=== PATIENT | male | born 1940 | race Caucasian/White ===

== ENCOUNTER 2025-01-24 08:27 | Inpatient (IN) | payer OTHER, SELFPAY ==
[2025-01-24] VITALS (16 sets, daily range): BP systolic 79–137; BP diastolic 45–81; BMI 26.0
[2025-01-24 06:08] LABS: Hematocrit 34.9 % (39.0-52.0); Hemoglobin 11.8 g/dL (13.0-18.0); Mean Corp Hgb Conc. 33.8 g/dL (33.0-37.0); Mean Corpuscular Hgb 29.4 pg (27.0-31.0); Mean Platelet Volume 10.9 fL (7.4-10.4); Platelet Count 164 10^3/uL (130-400); Red Blood Cell Count 4.01 10^6/uL (4.70-6.10); Red Cell Dist. Width 14.8 % (11.5-14.5); White Blood Cell Count 22.3 10^3/uL (4.8-10.8)
[2025-01-24 06:10] LABS: COVID-19 Antigen Negative (Negative)
[2025-01-24 06:12] LABS: ALT (SGPT) 88 U/L (0-50); AST (SGOT) 39 U/L (17-59); Albumin 3.8 g/dl (3.5-5.0); Alkaline Phosphatase 120 U/L (38-126); Blood Urea Nitrogen 21 mg/dl (9-20); Calcium 8.8 mg/dl (8.4-10.2); Carbon Dioxide 28 mmol/L (22-30); Chloride 102 mmol/L (98-107); Estimated Creatinine Clearance 40 ml/min; Glucose 135 mg/dl (70-99); Potassium 4.7 mmol/L (3.5-5.1); Sodium 140 mmol/L (135-145); Total Bilirubin 1.9 mg/dl (0.2-1.3); Total Protein 7.3 g/dl (6.3-8.2); eGFR 42.49
[2025-01-24 06:29] LABS: Troponin I 0.046 ng/ml
--- NOTE | 2025-01-24 06:48 | ED.GENMED ---
History of Present Illness
General
Chief Complaint: Fever
Source: patient
Time Seen by Provider: 01/24/25 06:48
History of Present Illness
History of Present Illness:
84-year-old male presents the emergency room complaining of fever, chills, weakness and cough. Patient began having the symptoms 4 to 5 days ago. Cough has become quite productive. Patient was treated over the winter for both RSV, influenza and
pneumonia. However he seemed to improve mid September and has been well until now. states he does occasionally gag or choke when consuming food and liquid. Patient also had a GI workup for anemia which included upper endoscopy colonoscopy and
a capsule study. All of his care has been obtained in [place]. They have just recently have come to this area.
Phy Exam
Physical Exam
Physical Exam:
General: Awake, Alert, Oriented X3. Mild increased work of breathing
Vitals: Febrile on arrival, hypoxic on arrival
Head: Atraumatic
Eyes: Pupils equal, EOMI
Throat: Airway intact, no exudates
Neck: Trachea midline
Lungs: Rhonchi and crackles particularly left lower half of the lung moss
Heart: Regular rate, no murmurs
Abd: Soft, Nontender, No pulsatile mass
Neuro: Nonfocal
Skin: Warm, dry, no rash
Extremities: pulses equal b/l, no edema
Sepsis
Sepsis Screening
Sepsis Assessment: Sepsis
Sepsis Screen
Sepsis Screen: Sepsis
Date: 01/24/25
Time: 15:33
Course
Orders/Labs/Results
Orders:
Orders
01/24/25 05:24
Electrocardiogram (*1) Urgent
Reason for Study: Fatigue / Weakness
Chest [CR Chest - 2 Views ] Urgent
Comment:
Reason For Exam: fever, weakness, productive cough
01/24/25 05:25
EKG- Treatment ONCE
01/24/25 05:41
COVID-19 Antigen Urgent
Source: Nasal Swab
Complete Blood Count/With Diff Urgent
Comprehensive Metabolic Panel Urgent
Manual Differential Urgent
Troponin I Urgent
Influenza A+B Rapid Molecular Urgent
RUMA Source: Nasal Swab
Specimen Description:
RSV [Respiratory Syncytial Virus] Urgent
RUMA Source: Nasal Swab
Specimen Description:
Date Specimen was Collected: 01/24/25
Time Specimen was Collected: 05:39
01/24/25 07:14
Lactic Acid Q4H
Comment: CANCEL 2nd LACTIC ACID IF 1st LACTIC ACID IS LESS THAN 2
Blood Culture Q30M
RUMA Source: Blood/Venous
Specimen Description:
01/24/25 07:21
Respiratory Culture/Gram Stain Urgent
RUMA Source: Sputum
Specimen Description:
Date Specimen was Collected: 01/24/25
Time Specimen was Collected: 07:16
01/24/25 08:05
Azithromycin 500 mg/250 ml [Zithromax Infusion] 500 mg in 250 ml IV NOW
CefTRIAXone [Rocephin] 1,000 mg IV NOW STA
Ipratropium/Albuterol Sulfate [Duoneb] 3 ml INH R NOW STA
01/24/25 08:06
Sterile Water [Sterile Water For Injection] 10 ml IV NOW STA
01/24/25 08:07
Admit/Transfer Patient As Directed
Co-Sign Provider:
Level of Care: Inpatient admission
Assign to:: Telemetry
Physician / Group: Hospitalist: Naomi
Diagnosis: Sepsis due to pna
Reason for Telemetry: Other
Other Reason for Telemetry: sepsis
Date to Stop Telemetry: 01/26/25
Time to Stop Telemetry: 11:00
Reason for Hospitalization: Sepsis due to pna
Expected length of stay greater than two midnights?: Yes
ELOS- Estimated Length of Stay in days: 2
I certify the patient meets the requirements for IP care: Yes
PRN Pain Medication Management As Directed
May give lesser potent ordered pain med per pt: Yes
preference::
Protocol:: Medication orders for pain may be administered in a
manner that supports deferring to patient preference
when the pt is:
- Requesting an ordered lesser potent pain medication.
Least to most potent pain medications are defined
as: acetaminophen < NSAID < tramadol < opioids
(morphine, oxycodone, hydromorphone).
- Requesting a lesser dose of the same medication IF
ORDERED.
- Requesting a less intrusive route of administration
if both routes are prescribed by the provider (PO <
IV).
01/24/25 08:13
Blood Culture Q30M
RUMA Source: Blood/Venous
Specimen Description:
Legionella Urinary Antigen Urgent
RUMA Source: Urine
Specimen Description:
01/24/25 08:15
0.9% Sodium Chloride 1000 ml [Nss] 1,000 ml IV BOLUS
01/24/25 08:19
Ipratropium/Albuterol Sulfate [Duoneb] 3 ml INH R Q4HPRN PRN
01/24/25 08:30
0.9% Sodium Chloride 1000 ml [Nss] 1,000 ml IV 100 mls/hr
01/24/25 11:27
Lactic Acid Q4H
Comment: CANCEL 2nd LACTIC ACID IF 1st LACTIC ACID IS LESS THAN 2
01/24/25 13:13
Meclizine [Antivert] 25 mg PO TID PRN
Tramadol HCl [Ultram] 50 mg PO TID PRN
01/24/25 13:13
DX Deep Vein Thrombosis Video Routine
01/24/25 16:00
Heparin 5,000 units SC Q8
01/24/25 18:00
Latanoprost [Xalatan Ophthalmic Solution] See Dose Instructions OPHTH QPM
01/24/25 20:00
Carvedilol [Coreg] 3.125 mg PO BID
Sucralfate [Carafate] 1 gram PO BID
01/24/25 22:00
Atorvastatin [Lipitor] 80 mg PO HS
Tamsulosin [Flomax] 0.4 mg PO HS
01/25/25 08:00
CefTRIAXone [Rocephin] 1,000 mg IV Q24H
Pantoprazole [Protonix] 40 mg PO DAILY
01/26/25 11:00
DC Protocol for Telemetry ONCE
Abnormal Lab Results
01/24/25 01/24/25
05:41 07:14
WBC 22.3 H 10^3/uL
(4.8-10.8)
RBC 4.01 L 10^6/uL
(4.70-6.10)
Hgb 11.8 L g/dL
(13.0-18.0)
Hct 34.9 L %
(39.0-52.0)
RDW 14.8 H %
(11.5-14.5)
MPV 10.9 H fL
(7.4-10.4)
Abs Neuts (Manual) 15.3 H 10^3/uL
(1.4-6.5)
Lymphocytes (Manual) 4 L %
(20-51)
Monocytes (Manual) 24 H %
(2-9)
BUN 21 H mg/dl
(9-20)
Creatinine 1.6 H mg/dL
(0.7-1.3)
Glucose 135 H mg/dl
(70-99)
Lactic Acid 2.3 H mmol/L
(0.7-2.0)
Total Bilirubin 1.9 H mg/dl
(0.2-1.3)
ALT 88 H U/L
(0-50)
Troponin I 0.046 H* ng/ml
01/24/25 05:41
01/24/25 05:41
Vital Signs
Initial and Last Documented VS:
Initial Vital Signs
Pulse Ox
81
01/24/25 05:20
Last Documented Vital Signs
Temp Pulse Resp BP Pulse Ox
99.6 F 71 18 117/60 98
01/24/25 15:19 01/24/25 15:19 01/24/25 15:19 01/24/25 15:19 01/24/25 15:19
MDM/Problems Addressed
Differential Diagnosis Includes:
Bacterial pneumonia, influenza, COVID, other viral illness, heart failure
MDM/Problems Addressed:
Patient presents with fever, cough, hypoxia. Presentation very consistent with a respiratory infection. He is hypoxic on room air requiring nasal cannula oxygen. He has a markedly elevated white blood cell count at 22,000, platelet count is
normal. Creatinine mildly elevated 1.6 that we do not have an old measurement to compare this to. Bilirubin mildly evaded at 1.9. Troponin mildly elevated 0.046. I suspect this is a nonischemic elevation related to his current infection. Chest
x-ray shows a large left lower lobe infiltrate as well as a right middle lobe infiltrate though again we do not have any old x-rays to compare to so perhaps the right sided findings could be scarring. Patient will require hospitalization given his
hypoxia, age, suspected multi lobar involvement
Chronic conditions affecting care: HTN and Other (High cholesterol)
*Radiology
Radiology exam reviewed: preliminary read by ED provider (Left lower lobe infiltrate, right middle lobe infiltrate)
*Pulse Oximetry
Patient hypoxic: yes
*EKG
Interpreted by ED Provider?: Yes
Heart Rate: 82
Rate: normal
Rhythm: sinus
Monette: normal axis
Interval: normal interval
QRS Pattern: normal QRS
Ischemia: non-specific ST changes
*Barrel Driller Interpretation
Rate: normal
Interpretation: normal
Heart Rate: 82
Rhythm: sinus
*Critical Care Note
Total Time (30-74mins, 75-104mins- exclusive of procedures): Not Applicable
ED Attending Note
-
Portions of this chart may have been created with voice recognition software.� Occasional wrong word or��sound alike� substitutions may have occurred due to the inherent limitations of voice recognition software.
Discharge Plan
Departure
Patient Disposition: Admit
Date of Disposition: 01/24/25
Time of Disposition: 07:33
Presentation/result/management discussed w/ accepting MD/DO: Hospitalist
Condition: Fair
Discharge Problem:
Pneumonia, Hypoxia, Sepsis
Interventions
Interventions:
*Risk Screen - Suicide Last Done: 01/24/25 05:27
*General Assessment Last Done: 01/24/25 05:27
*Neglect/Abuse Screening Last Done: 01/24/25 05:27
*ED- Fall Risk Assessment Last Done: 01/24/25 05:27
*ED COVID-19 Vaccine History Last Done: 01/24/25 14:13
*Nursing Disposition Last Done: 01/24/25 13:16
ED- Neurological Assessment Last Done: 01/24/25 05:20
ED-Skin Assessment Last Done: 01/24/25 05:20
Discharge Date and Time
Discharge Date/Time: 01/24/25 13:16
[2025-01-24 07:44] LABS: Lymphocytes 4 % (20-51); Monocytes 24 % (2-9); Nucleated Red Blood Cells % 0 % (-)
[2025-01-24 07:45] LABS: Absolute Neutrophils -Man Diff 15.3 10^3/uL (1.4-6.5); Band Neutrophils 3 % (0-3); Metamyelocytes 2 % (-); Myelocytes 1 % (-); Segmented Neutrophils 66 % (42-75)
[2025-01-24 07:46] LABS: Normal RBC Morphology Yes; Platelets Checked Yes; Total Cells Counted 100
[2025-01-24 08:05] LABS: Lactic Acid 2.3 mmol/L (0.7-2.0)
[2025-01-24] MEDS: DUONEB 3 ML INH (08:18)
[2025-01-24] MEDS: ZITHROMAX INFUSION 250 IV (08:19)
[2025-01-24] MEDS: ROCEPHIN 1000 MG IV (08:19)
[2025-01-24] MEDS: STERILE WATER FOR INJECTION 10 ML IV (08:19)
[2025-01-24] MEDS: NSS 1000 IV ×2 (08:20→09:14)
--- NOTE | 2025-01-24 09:02 | HPS.HSE ---
Family Physician
-
Family Physician: NOT KNOW UNKNOWN - PT DOES
Chief Complaint
-
Fever, chills, cough
History of Present Illness
Mr. Shell is an 84-year-old male with a medical history of CAD (status post stent, reportedly not on antiplatelets due to anemia), CKD stage IIIa, scoliosis (status post multiple lumbar surgeries), hiatal hernia, and enlarged prostate who presented
with fever, chills, weakness, and cough. His symptoms have been ongoing for approximately 5 days prior to arrival. He had been treated this previous winter for pneumonia due to RSV and influenza. He does report occasional cough with food and
drink. He lives in [place] with his where all of his previous care has been managed. He has been evaluated by GI and underwent upper and lower endoscopy which were reportedly remarkable only for a hiatal hernia. He denies any significant
smoking or drinking history.
In the ED, he was borderline hypotensive with an SBP around 100. He was afebrile but tachypneic and hypoxic to the low 80s on room air. His pulse ox improved to the mid 90s on 3 L via nasal cannula. Labs were remarkable for a significant
leukocytosis of 22,000, hemoglobin of 11.8/MCV 87, creatinine 1.6, lactic acid 2.3, T. bili 1.9 with an ALT of 88, and a troponin of 0.046. Respiratory panel negative for RSV, influenza, or COVID. Chest x-ray shows large left lower lobe and right
middle lobe infiltrate. He was bolused a liter of resuscitative fluids, cultures were obtained, and he was started on antibiotics for community-acquired pneumonia. Sputum culture was also obtained. He was given less than 30 cc/kg resuscitative
fluids per sepsis protocol presumably due to unknown heart failure status especially considering his home medications include torsemide. He has been admitted for further evaluation and management of sepsis secondary to community-acquired pneumonia.
Medical History
Past Medical History
Past Medical History: Reports CAD (Prior PCI) and Renal Failure (CKD)
Additional Past Medical History:
Enlarged prostate, hiatal hernia, normocytic anemia
Past Surgical History: Reports Other (Hernia repair, lumbar spinal surgery)
Social History
Tobacco: Former Smoker (Remote history, quit over 46 years ago, smoked occasionally for approximately 10 years)
Alcohol: None
Drug: None
Personal:
Living: With Family
Family History
Family History: Not pertinent
Allergies / Home Medications
Allergies reflects when Allergies were last updated in [facility].
Home Medications with original date entered in [facility]
Allergy/Medication List:
Allergies
Allergy/AdvReac Type Severity Reaction Status Date / Time
ondansetron [From Zofran] Allergy Unknown Vomiting Verified 01/24/25 07:50
hydromorphone [From Dilaudid] AdvReac Unknown Pharmacy Verified 01/24/25 07:50
to Review
morphine AdvReac Unknown Pharmacy Verified 01/24/25 07:50
to Review
Home Medications
acetaminophen 325 mg tablet (Tylenol) 325 mg PO Q8H 01/24/25
alfuzosin 10 mg tablet,extended release 24 hr 10 mg PO DAILY 01/24/25
atorvastatin 80 mg tablet 80 mg PO HS 01/24/25
carvedilol 3.125 mg tablet 3.125 mg PO BID 01/24/25
ferrous sulfate 325 mg (65 mg iron) tablet 325 mg PO .3 X PER WEEK 01/24/25
latanoprost 0.005 % eye drops 1 drp ophthalmic (eye) QPM 01/24/25
meclizine 25 mg tablet 25 mg PO TID PRN vertigo 01/24/25
pantoprazole 40 mg tablet,delayed release 40 mg PO DAILY 01/24/25
sucralfate 1 gram tablet 1 g PO BID 01/24/25
torsemide 10 mg tablet 10 mg PO DAILY 01/24/25
tramadol 50 mg tablet 50 mg PO TID PRN back pain 01/24/25
Review of Systems
-
History Source: Patient
A 12 point ROS was completed and negative except as noted: Yes
Constitutional: Reports Fatigue and Chills
Respiratory: Reports Cough
Physical Exam
Vital Signs
Vital Signs
Temp Pulse Resp BP Pulse Ox
99.2 F 72 22 100/61 94
01/24/25 08:00 01/24/25 08:35 01/24/25 08:35 01/24/25 08:35 01/24/25 08:35
Physical Exam
General: No Apparent Distress
Laboratory Results
-
01/24/25 05:41
01/24/25 05:41
Laboratory Results
Lactic Acid 2.3 mmol/L (0.7-2.0) H 01/24/25 07:14
Total Bilirubin 1.9 mg/dl (0.2-1.3) H 01/24/25 05:41
AST 39 U/L (17-59) 01/24/25 05:41
ALT 88 U/L (0-50) H 01/24/25 05:41
Alkaline Phosphatase 120 U/L (38-126) 01/24/25 05:41
Troponin I 0.046 ng/ml H* 01/24/25 05:41
Impression/Plan
-
General: No Apparent Distress, Comfortable and Conversant
HEENT: NormoCephalic, Moist mucous membranes, nasal cannula and nebulizer mask in place
Respiratory: Scattered rhonchi and expiratory wheezing, Non Labored Respirations
Cardiac: S1/S2 and Regular Rhythm; No Rub or Gallop
GI: Soft, Non Tender, Non Distended and Normal Bowel Sounds
Musculoskeletal: No Edema, no deformity
Skin: Warm and dry
: NO Oliver
Neuro: Awake, Alert, Nonfocal/grossly intact
Psych: Calm and Intact Judgment/Insight
Mr. Shell is an 84-year-old male with a medical history of CAD (status post stent, reportedly not on antiplatelets due to anemia), CKD stage IIIa, scoliosis (status post multiple lumbar surgeries), hiatal hernia, and enlarged prostate who presented
with fever, chills, weakness, and cough. His symptoms have been ongoing for approximately 5 days prior to arrival. He had been treated this previous winter for pneumonia due to RSV and influenza. He does report occasional cough with food and
drink. He lives in [place] with his where all of his previous care has been managed. He has been evaluated by GI and underwent upper and lower endoscopy which were reportedly remarkable only for a hiatal hernia. He denies any significant
smoking or drinking history.
In the ED, he was borderline hypotensive with an SBP around 100. He was afebrile but tachypneic and hypoxic to the low 80s on room air. His pulse ox improved to the mid 90s on 3 L via nasal cannula. Labs were remarkable for a significant
leukocytosis of 22,000, hemoglobin of 11.8/MCV 87, creatinine 1.6, lactic acid 2.3, T. bili 1.9 with an ALT of 88, and a troponin of 0.046. Respiratory panel negative for RSV, influenza, or COVID. Chest x-ray shows large left lower lobe and right
middle lobe infiltrate. He was bolused a liter of resuscitative fluids, cultures were obtained, and he was started on antibiotics for community-acquired pneumonia. Sputum culture was also obtained. He was given less than 30 cc/kg resuscitative
fluids per sepsis protocol presumably due to unknown heart failure status especially considering his home medications include torsemide. He has been admitted for further evaluation and management of sepsis secondary to community-acquired pneumonia.
Sepsis secondary to community-acquired pneumonia:
- Bolused 1 L of resuscitative fluids in the ED and will be continued on NS at 100 cc/h, was given less than 30 cc/kg per sepsis protocol due to unknown heart failure status and home medications including torsemide, does not appear overtly volume
overloaded at this point but will continue to monitor
- Continue antibiotics with ceftriaxone and doxycycline
- Check strep pneumo and Legionella urinary antigens
- Follow-up cultures
- Nebulizers as needed
- BOILER TESTING TECHNICIAN evaluation considering reported history of dysphagia and recurrent pneumonia
Acute hypoxic respiratory failure:
- Secondary to pneumonia
- Continue supplemental oxygen, titrate as able
- Breathing treatments as needed
Elevated troponin:
- Mild, will trend through peak
- Do not suspect acute cardiac ischemia, likely due to respiratory distress in the setting of pneumonia
- History of CAD, not on antiplatelets as an outpatient due to anemia, continue carvedilol
Hiatal hernia:
- Possibly contributing to frequent cough
- Continue pantoprazole and sucralfate
CKD stage IIIa:
- Renal function appears close to baseline
- Will monitor and renally dose all medications
Abnormal LFTs:
- Mildly elevated T. bili and ALT
- Will monitor
DVT prophylaxis: Subcu heparin
CODE STATUS: Full code, confirmed with patient and family
Total time spent on today's encounter was 55 minutes
[2025-01-24 09:53] LABS: Troponin I 0.055 ng/ml
[2025-01-24 11:52] LABS: Lactic Acid 1.7 mmol/L (0.7-2.0)
--- NOTE | 2025-01-24 16:03 | PTOTSP ---
ST Acute Care Evaluation
Pt currently presents with clinical signs of moderately-severe pharyngoesophageal dysphagia characterized by persistent throat clearing and/or coughing following ingestion of small and large quantities of thin liquids as well as thicker
consistencies, intermittent hiccupping, and reports of feeling retrograde flow/reflux. Pt also has a recently dx (EGD from 10/24/24) large hiatal hernia with candace lesions and GE junction inflammation.
Recommendations:
- NPO with as many meds converted to IV as possible; any remaining meds - only critical - crushed in puree.
- STRICT ASPIRATION & REFLUX PRECAUTIONS: HOB upright as often as possible (never lower than 30 degrees); oral care q4 hours - swish and spit - do not let swallow.
- Video fluoroscopic swallow study (VFSS) for a more objective evaluation of pt's pharyngeal and esophageal swallowing function on Sunday.
- TELEVISION NEWS REPORTER to f/u to provide additional recommendations upon completion of VFSS.
[2025-01-24] MEDS: XALATAN OPHTHALMIC SOLUTION 1 DROP OPHTH (17:17)
[2025-01-24] MEDS: HEPARIN 5000 UNITS SC (17:18)
[2025-01-24] MEDS: D5/0.9% SODIUM CHLORIDE 1000 IV (18:22)
[2025-01-24] MEDS: NSS IV (18:22)
[2025-01-24] MEDS: CARAFATE PO (19:46)
[2025-01-24] MEDS: FLOMAX 0.4 MG PO (22:12)
[2025-01-24] MEDS: SEROQUEL 50 MG PO (22:12)
[2025-01-24 22:23] LABS: Troponin I 0.032 ng/ml
[2025-01-25] MEDS: HEPARIN 5000 UNITS SC ×3 (00:47→18:04)
[2025-01-25] MEDS: MORPHINE SULFATE 1 MG IV (00:53)
--- NOTE | 2025-01-25 01:50 | PTCARENOTE ---
Pt provided with PRN IV Morphine for 10/10 lower back pain. This RN noticed that pt has a morphine allergy listed with a side effect of hallucinations. This rfp writer asked pt what his usual reaction to morphine is and pt states 'I usually feel like
I'm dying'. Pt reported to this RN that is not experiencing any side effects s/p IV morphine administration. PROPOSAL DIRECTOR Cheryl notified of allergy, IV morphine placed on hold until allergy is clarified.
[2025-01-25 03:36] LABS: Troponin I 0.028 ng/ml
[2025-01-25 03:55] VITALS: BP 111/59
[2025-01-25 07:39] VITALS: BP 105/49
[2025-01-25 07:39] LABS: Hematocrit 28.8 % (39.0-52.0); Hemoglobin 9.3 g/dL (13.0-18.0); Mean Corp Hgb Conc. 32.3 g/dL (33.0-37.0); Mean Corpuscular Volume 89.7 fL (80.0-94.0); Platelet Count 146 10^3/uL (130-400); Red Blood Cell Count 3.21 10^6/uL (4.70-6.10); Red Cell Dist. Width 14.9 % (11.5-14.5); White Blood Cell Count 16.1 10^3/uL (4.8-10.8)
[2025-01-25 07:58] LABS: ALT (SGPT) 59 U/L (0-50); AST (SGOT) 28 U/L (17-59); Albumin 3.1 g/dl (3.5-5.0); Alkaline Phosphatase 95 U/L (38-126); Blood Urea Nitrogen 23 mg/dl (9-20); Calcium 7.8 mg/dl (8.4-10.2); Carbon Dioxide 27 mmol/L (22-30); Chloride 105 mmol/L (98-107); Direct Bilirubin 0.4 mg/dl (0.0-0.4); Estimated Creatinine Clearance 42 ml/min; Glucose 125 mg/dl (70-99); Magnesium 1.9 mg/dl (1.6-2.3); Phosphorus 2.5 mg/dl (2.5-4.5); Potassium 4.5 mmol/L (3.5-5.1); Sodium 140 mmol/L (135-145); Total Bilirubin 0.8 mg/dl (0.2-1.3); Total Protein 6.1 g/dl (6.3-8.2); eGFR 45.91
[2025-01-25] MEDS: CARAFATE PO ×2 (08:09→19:50)
[2025-01-25] MEDS: VIBRAMYCIN 100 MG PO ×2 (08:10→19:51)
[2025-01-25] MEDS: PROTONIX IV 40 MG IV (08:11)
[2025-01-25] MEDS: ROCEPHIN 1000 MG IV (08:11)
[2025-01-25] MEDS: D5/0.9% SODIUM CHLORIDE 1000 IV (08:12)
[2025-01-25] MEDS: STERILE WATER FOR INJECTION 10 ML IV (08:12)
[2025-01-25] MEDS: NSS (PRESERVATIVE FREE) 10 ML IV (08:12)
[2025-01-25 08:43] LABS: Absolute Neutrophils -Man Diff 11.5 10^3/uL (1.4-6.5); Band Neutrophils 3 % (0-3); Eosinophils 2 % (0-6); Lymphocytes 2 % (20-51); Monocytes 22 % (2-9); Myelocytes 2 % (-); Nucleated Red Blood Cells % 0 % (-); Segmented Neutrophils 69 % (42-75)
[2025-01-25 08:44] LABS: Normal RBC Morphology Yes; Platelets Checked Yes; Total Cells Counted 100
[2025-01-25 10:58] VITALS: BP 112/51
--- NOTE | 2025-01-25 12:47 | W.PN.HOSP.TC ---
Today's Communication/Plan
-
Assessment / Plan
Assessment / Plan
General: No Apparent Distress, Comfortable and Conversant
HEENT: NormoCephalic, Moist mucous membranes, nasal cannula in place
Respiratory: Scattered rhonchi and expiratory wheezing, Non Labored Respirations
Cardiac: S1/S2 and Regular Rhythm; No Rub or Gallop
GI: Soft, Non Tender, Non Distended and Normal Bowel Sounds
Musculoskeletal: No Edema, no deformity
Skin: Warm and dry
: NO Oliver
Neuro: Awake, Alert, Nonfocal/grossly intact
Psych: Calm and Intact Judgment/Insight
Mr. Shell is an 84-year-old male with a medical history of CAD (status post stent, reportedly not on antiplatelets due to anemia), CKD stage IIIa, scoliosis (status post multiple lumbar surgeries), hiatal hernia, and enlarged prostate who presented
with fever, chills, weakness, and cough. His symptoms had been ongoing for approximately 5 days prior to arrival. He had been treated this previous winter for pneumonia due to RSV and influenza. He does report occasional cough with food and
drink. He lives in [place] with his where all of his previous care has been managed. He has been evaluated by GI and underwent upper and lower endoscopy which were reportedly remarkable only for a hiatal hernia. He denies any significant
smoking or drinking history.
In the ED, he was borderline hypotensive with an SBP around 100. He was afebrile but tachypneic and hypoxic to the low 80s on room air. His pulse ox improved to the mid 90s on 3 L via nasal cannula. Labs were remarkable for a significant
leukocytosis of 22,000, hemoglobin of 11.8/MCV 87, creatinine 1.6, lactic acid 2.3, T. bili 1.9 with an ALT of 88, and a troponin of 0.046. Respiratory panel negative for RSV, influenza, or COVID. Chest x-ray shows large left lower lobe and right
middle lobe infiltrate. He was bolused a liter of resuscitative fluids, cultures were obtained, and he was started on antibiotics for community-acquired pneumonia. Sputum culture was also obtained. He was given less than 30 cc/kg resuscitative
fluids per sepsis protocol presumably due to unknown heart failure status especially considering his home medications include torsemide. He has been admitted for further evaluation and management of sepsis secondary to community-acquired pneumonia.
Sepsis secondary to community-acquired pneumonia:
- Possibly aspiration is a contributing factor as well
- Bolused 1 L of resuscitative fluids in the ED and continued on NS at 100 cc/h, was given less than 30 cc/kg per sepsis protocol due to unknown heart failure status and home medications including torsemide, does not appear overtly volume overloaded
at this point but will continue to monitor
- Fluids switched to D5 normal saline at 75 cc/h now that he is n.p.o. pending video swallow, currently normotensive, will monitor
- Continue antibiotics with ceftriaxone and doxycycline
- Strep pneumo and Legionella urinary antigens negative, will discontinue doxycycline if MRSA screen is negative
- Follow-up cultures
- Nebulizers as needed
- Now n.p.o. following MECHANICAL PIPING DESIGNER evaluation due to aspiration risk, pending video swallow
Acute hypoxic respiratory failure:
- Secondary to pneumonia and possible aspiration
- Continue supplemental oxygen, titrate as able
- Breathing treatments as needed
- Started IV steroids with Solu-Medrol 40 mg every 12 hours
- CT chest showed pneumonia with background pulmonary fibrosis, he does not regularly follow with the tax advisor but should do so going forward
Dysphagia:
- N.p.o. pending video swallow due to high aspiration risk after MECHANICAL PIPING DESIGNER evaluation
- Only essential medications to be given orally crushed in pur�e
- IV fluids with dextrose
- Follow-up MECHANICAL PIPING DESIGNER recommendations
Elevated troponin:
- Mild, peaked at 0.055, now within normal limits
- Do not suspect acute cardiac ischemia, likely due to respiratory distress in the setting of pneumonia
- History of CAD, not on antiplatelets as an outpatient due to anemia, continue carvedilol
Hiatal hernia:
- Possibly contributing to frequent cough/dysphagia
- Continue pantoprazole and sucralfate
CKD stage IIIa:
- Renal function appears close to baseline
- Will monitor and renally dose all medications
Abnormal LFTs:
-Very mildly elevated ALT, T. bili now within normal limit
- Will monitor
DVT prophylaxis: Subcu heparin
CODE STATUS: Full code, confirmed with patient and family
Total time spent on today's encounter was 40 minutes
Anticipated Discharge: 24 - 48 hours
Subjective/Interval History
-
Date of Service: January 25, 2025
Patient was seen and examined at bedside this morning. He was made n.p.o. except for essential medications yesterday due to aspiration risk after MECHANICAL PIPING DESIGNER evaluation. Pending video swallow tomorrow. CT chest shows pneumonia with a background of
interstitial fibrosis.
Objective Data
-
Labs:
Laboratory Results
01/25/25
06:54
WBC 16.1 H
Hgb 9.3 L D
Hct 28.8 L
Plt Count 146
Sodium 140
Potassium 4.5
Chloride 105
Carbon Dioxide 27
BUN 23 H
Creatinine 1.5 H
Glucose 125 H
Calcium 7.8 L
Total Bilirubin 0.8 D
AST 28
ALT 59 H
Alkaline Phosphatase 95
Vital Signs:
Vital Signs
Temp Pulse Resp BP Pulse Ox
98.1 F 80 21 112/51 93
01/25/25 10:58 01/25/25 10:58 01/25/25 10:58 01/25/25 10:58 01/25/25 10:58
I&O
01/24/25 01/25/25 01/26/25
06:59 06:59 06:59
Intake Total 1470 / 1470
Output Total 250 / 250
Balance 1220 / 1220
Review of Systems
-
History Source: Patient
All other systems: Reviewed and negative
Physical Exam
-
General: No Apparent Distress
[2025-01-25] MEDS: SOLU-MEDROL PF 40 MG IV (13:17)
--- NOTE | 2025-01-25 14:49 | CM ---
CM reviewed chart, patient seen bedside, initial assessment completed. Patient reports he and his live in [place], currently here visiting wives family. Patient reports home in [place] in one level, no steps to enter, uses a RW for ambulation.
Patient currently on O2, does not wear home O2. Patient reports PCP is in [place], Dr. Sullivan, pharmacy if needed in [facility]. NPO pending Video Swallow. CM will continue to follow for all discharge planning needs.
Plan; home no needs, watch for O2 needs
[2025-01-25] MEDS: ULTRAM 50 MG PO ×2 (15:09→19:59)
[2025-01-25 15:10] VITALS: BP 121/56
[2025-01-25] MEDS: XALATAN OPHTHALMIC SOLUTION 1 DROP OPHTH (18:04)
[2025-01-25 19:41] VITALS: BP 127/64
[2025-01-25] MEDS: FLOMAX 0.4 MG PO (22:34)
[2025-01-25] MEDS: SEROQUEL 50 MG PO (22:34)
[2025-01-25 23:13] VITALS: BP 114/68
[2025-01-26] MEDS: HEPARIN 5000 UNITS SC ×3 (00:24→15:34)
[2025-01-26] MEDS: SOLU-MEDROL PF 40 MG IV ×2 (00:25→11:17)
[2025-01-26 03:14] VITALS: BP 102/63
[2025-01-26] MEDS: D5/0.9% SODIUM CHLORIDE IV (04:20)
[2025-01-26] MEDS: D5/0.9% SODIUM CHLORIDE 1000 IV ×2 (05:44→17:54)
[2025-01-26 07:00] VITALS: BP 120/64
[2025-01-26 07:55] LABS: % Basophils 0.1 % (0-2); % Eosinophils 0.2 % (0-6); % Immature Granulocytes 2.3 % (0-0.5); % Lymphocytes 3.3 % (20.5-51.1); % Monocytes 7.4 % (1.7-9.3); % Neutrophils 86.7 % (42.2-75.2); Absolute Immature Granulocytes 0.2 10^3/uL (0-0.05); Absolute Lymphocytes 0.3 10^3/uL (1.2-3.4); Absolute Monocytes 0.7 10^3/uL (0.1-0.6); Absolute Neutrophils 8.6 10^3/uL (1.4-6.5); Hematocrit 33.5 % (39.0-52.0); Hemoglobin 10.8 g/dL (13.0-18.0); Mean Corp Hgb Conc. 32.2 g/dL (33.0-37.0); Mean Corpuscular Hgb 29.3 pg (27.0-31.0); Nucleated Red Blood Cells % 0 % (-); Platelet Count 188 10^3/uL (130-400); Red Blood Cell Count 3.68 10^6/uL (4.70-6.10); Red Cell Dist. Width 14.7 % (11.5-14.5); White Blood Cell Count 9.9 10^3/uL (4.8-10.8)
[2025-01-26 08:13] LABS: Blood Urea Nitrogen 27 mg/dl (9-20); Calcium 8.1 mg/dl (8.4-10.2); Carbon Dioxide 23 mmol/L (22-30); Chloride 109 mmol/L (98-107); Estimated Creatinine Clearance 42 ml/min; Glucose 272 mg/dl (70-99); Magnesium 2.1 mg/dl (1.6-2.3); Phosphorus 3.8 mg/dl (2.5-4.5); Potassium 4.6 mmol/L (3.5-5.1); Sodium 143 mmol/L (135-145); eGFR 45.91
[2025-01-26] MEDS: CARAFATE PO ×2 (08:56→20:03)
[2025-01-26] MEDS: PROTONIX IV 40 MG IV (08:57)
[2025-01-26] MEDS: NSS (PRESERVATIVE FREE) 10 ML IV (08:57)
[2025-01-26] MEDS: STERILE WATER FOR INJECTION 10 ML IV (08:58)
[2025-01-26] MEDS: ROCEPHIN 1000 MG IV (08:58)
[2025-01-26] MEDS: VIBRAMYCIN PO (09:00)
--- NOTE | 2025-01-26 09:29 | CON.PUL ---
Consultation
Consultation Request
Date/Time Consultation Requested: 01/26/2025-9 AM
Date/Time Consultation Performed: 01/26/2025-10 AM
Requesting Provider: Hospitalist
Performing Provider: Dr. Mcghee
Reason for Consultation: Shortness of breath
Medical History
-
Chief Complaint: Shortness of breath
History of Present Illness:
84-year-old male with a history of CAD, chronic renal failure, scoliosis, hiatal hernia presented with 5 days of fevers, chills, weakness and cough noted to have pneumonia-pulmonary consulted for shortness of breath/pneumonia 01/26/2025.patient
states these never been told he had lung disease. He's never been told he had COPD, asthma or pulmonary fibrosis. He just recently became more short of breath. He had no fevers, chills. He did have discolored sputum. He denies any chest pain,
pleurisy, hemoptysis, abdominal pain, nausea or focal weakness.
Past Medical History
Past Medical History: None (CAD/stent. Chronic renal failure stage IIIa. Scoliosis. Hiatal hernia. BPH. Former [id number]-22-mede-year, quit 46 years ago.)
Social History
Tobacco: Former Smoker ([id number] quit 46 years ago)
Alcohol: None
Drug: None
Personal:
Living: With Family
Occupational Exposures: No known asbestos exposure
Environmental Exposures: No known tuberculosis exposure
Family History
Family History: Reviewed & Not Pertinent
Allergies / Home Medications
Allergies
Allergy/AdvReac Type Severity Reaction Status Date / Time
ondansetron [From Zofran] Allergy Unknown Vomiting Verified 01/24/25 07:50
hydromorphone [From Dilaudid] AdvReac Unknown Pharmacy Verified 01/24/25 07:50
to Review
morphine AdvReac Unknown Pharmacy Verified 01/24/25 07:50
to Review
Home Medications
�Medication �Instructions �Recorded �Confirmed �Last Taken �Type
acetaminophen 325 mg tablet 325 mg PO TIDPRN PRN mild pain, 01/24/25 01/24/25 01/23/25 History
(Tylenol) with tramadol
albuterol sulfate 90 mcg/actuation 1 puff inhalation R DAILYPRN PRN 01/24/25 01/24/25 01/23/25 History
aerosol inhaler sob
alfuzosin 10 mg tablet,extended 10 mg PO DAILY 01/24/25 01/24/25 01/23/25 History
release 24 hr
atorvastatin 80 mg tablet 80 mg PO HS 01/24/25 01/24/25 01/23/25 History
carvedilol 3.125 mg tablet 3.125 mg PO BID@0800,199901/24/25 01/24/25 01/23/25 History
ferrous sulfate 325 mg (65 mg 325 mg PO MOWEFR 01/24/25 01/24/25 Unknown History
iron) tablet
fluticasone propionate 50 1 spray intranasal DAILYPRN PRN 01/24/25 01/24/25 Unknown History
mcg/actuation nasal allergies
spray,suspension
latanoprost 0.005 % eye drops 1 drp BOTH EYES HS 01/24/25 01/24/25 01/23/25 History
meclizine 25 mg tablet 25 mg PO TID PRN vertigo 01/24/25 01/24/25 Unknown History
pantoprazole 40 mg tablet,delayed 40 mg PO DAILY 01/24/25 01/24/25 01/23/25 History
release
quetiapine 50 mg tablet 50 mg PO HS 01/24/25 01/24/25 01/23/25 History
sucralfate 1 gram tablet 1 g PO BID@1400,199901/24/25 01/24/25 01/23/25 History
torsemide 10 mg tablet 10 mg PO DAILY 01/24/25 01/24/25 01/23/25 History
tramadol 50 mg tablet 50 mg PO TIDPRN PRN back pain 01/24/25 01/24/25 01/23/25 History
Review of Systems
-
Unable to Obtain full review of systems at this time due to: Other (Per HPI)
Vitals / Labs / Diagnostic Testing
Vital Signs
Temp Pulse Resp BP Pulse Ox
97.7 F 87 20 120/64 94
01/26/25 07:00 01/26/25 07:00 01/26/25 07:00 01/26/25 07:00 01/26/25 07:00
Lab Data
01/26/25 06:49
01/26/25 06:49
Microbiology
01/24/25 08:13 Blood/Venous Blood Culture - Preliminary
No Growth in 48 hours- Final report to follow
01/24/25 17:07 Throat/Pharynx MRSA Screen - Final
No Methicillin Resistant Staphylococcus aureus isolated.
01/24/25 07:14 Blood/Venous Blood Culture - Preliminary
No Growth in 48 hours- Final report to follow
01/24/25 07:21 Sputum Respiratory Culture - Final
Haemophilus influenzae
01/24/25 07:21 Sputum Gram Stain - Final
01/24/25 09:19 Urine Streptococcus pneumoniae Antigen (M - Final
Negative for Streptococcus pneumoniae antigen.
A negative result does not exclude infection with
Streptococcus pneumoniae. Clinical correlation is
recommended.
01/24/25 08:13 Urine Legionella Urinary Antigen - Final
Negative for Legionella pneumophila Serogroup 1 antigen.
A negative result does not rule out the possiblity of
Legionella infection due to other serogroups or species of
Legionella. Clinical correlation is recommended.
01/24/25 05:41 Nasal Swab Influenza Types A & B (VICKY) - Final
Negative for Influenza A & B, NAAT
Negative results must be combined with clinical observations
and patient history.
Nucleic Acid Amplification test (NAAT)performed on the
[employer] platform.
01/24/25 05:41 Nasal Swab Respiratory Syncytial Virus Ag - Final
Negative for Respiratory Syncytial Virus.
A false negative result may be obtained with a specimen
collected early in the acute phase. If symptoms persist, a
new specimen should be tested.
Diagnostic Testing:
Physical Exam
-
Exam:
Well-nourished and well-developed in no apparent distress
HEENT-atraumatic, normocephalic
Neck-supple, no JVD, no bruit
Heart-regular rate and rhythm-no murmurs, rubs or gallops
Chest with diminished breath sounds, mildly prolonged expiratory time, expiratory wheezes and rhonchi as well as basilar crackles.
Back without CVA tenderness
Abdomen-soft, nontender, nondistended, no hepatosplenomegaly
Extremities-no cyanosis, clubbing, edema and good peripheral pulses
Integument-intact, no rashes, lesions or ecchymosis
Neurology-alert and oriented, nonfocal motor and sensory exam
Assessment
-
84-year-old male with a history of CAD, chronic renal failure, scoliosis, hiatal hernia presented with 5 days of fevers, chills, weakness and cough noted to have pneumonia-pulmonary consulted for shortness of breath/pneumonia 01/26/2025.
Community-acquired pneumonia
Leukocytosis
Elevated troponin
Elevated LFTs
Mild tiendw-utsgwhkwjc-vdpuzzfzel 10.8
Conditions present prior to admission:
CAD/stent.
Chronic renal failure stage IIIa.
Scoliosis.
Hiatal hernia.
BPH.
Former demztj-23-iydo-year, quit 46 years ago.
Plan
Respiratory decompensation likely due to bgyykjyei-moiqjtcvd-lzejbzop
Supplemental oxygen as needed
Nebulizers will be initiated.
Mucolytic's
Mucus clearing devices
Methylprednisolone initiated-appropriate with significant wheezing on exam
Aspiration precautions
Speech therapy evaluation-video swallow pending
Pulmonary status will need to be reevaluated once pneumonia clears-May be a component of chronic interstitial lung disease
Recommend outpatient pulm evaluation including PFTs
Radiographic follow-up
Check cultures
Empiric antibiotics-doxycycline and ceftriaxone initiated and appropriate
Follow leukocytosis
Trend troponin
Monitor hemoglobin
Transfuse if needed
Follow-up LFTs
Monitor blood sugar
Insulin supplementation if needed
DVT prophylaxis-on subcu heparin every 8 hours
Nutrition
Early mobilization/physical therapy
They're usually down in [place]-most recently the [facility], prior to that [place] and before that [place]
Above recommendations were reviewed with his was at the bedside during interview and exam.
Outpatient pulmonary follow-up recommended
Diagnostic data:
Chest x-ray 01/24/2025-bilateral patchy opacifications suggesting bilateral pneumonia
CT chest 01/25/2025-CT findings suggest background of interstitial fibrosis, bilateral areas of airspace opacification, minimal bilateral pleural effusions
Data Reviewed
-
EKG: Report reviewed by me
Radiology: Report reviewed by me
CT Scan: Image personally visualized and interpreted and Report reviewed by me
Labs: Labs reviewed by me
Old Records: Reviewed
Total Time Spent with Patient (in minutes): 55
--- NOTE | 2025-01-26 10:37 | W.PN.HOSP.TC ---
Today's Communication/Plan
-
IV abx
IV steroid
Assessment / Plan
Assessment / Plan
General: No Apparent Distress, Comfortable and Conversant
HEENT: NormoCephalic, Moist mucous membranes, nasal cannula in place
Respiratory: Scattered rhonchi and expiratory wheezing, Non Labored Respirations
Cardiac: S1/S2 and Regular Rhythm; No Rub or Gallop
GI: Soft, Non Tender, Non Distended and Normal Bowel Sounds
Musculoskeletal: No Edema, no deformity
Skin: Warm and dry
: NO Oliver
Neuro: Awake, Alert, Nonfocal/grossly intact
Psych: Calm and Intact Judgment/Insight
Sepsis with lactic acidosis / septic shock POA secondary to aspiration pneumonia:
- aspiration is a contributing factor
- s/p IVF . WBC is normal now, afebrile
- can stop further IVF
- Continue antibiotics with ceftriaxone and doxycycline
- Strep pneumo and Legionella urinary antigens negative,
- consult pulmonary & ID doctors
- Follow-up cultures
- Nebulizers as needed
# Suspect underlying ILD
Former bgqhug-19-fblk-year, quit 46 years ago.
c/w IV steroid
f/w pulmonary recommendations
# Dysphagia
Seen by speech, recommended IDDS-5 with thin liquids
Acute hypoxic respiratory failure:
- Secondary to pneumonia from aspiration
- Continue supplemental oxygen, titrate as able
- Breathing treatments as needed
- Started IV steroids with Solu-Medrol 40 mg every 12 hours
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
# Mild cfnsst-hpylppoitu-dxfyukjmwk
chronic
Elevated troponin: non ischemic myocardial injury due to Sepsis
- Mild, peaked at 0.055, now within normal limits
- Do not suspect acute cardiac ischemia, likely due to respiratory distress in the setting of pneumonia
- History of CAD, not on antiplatelets as an outpatient due to anemia, continue carvedilol
Hiatal hernia:
- Possibly contributing to frequent cough/dysphagia
- Continue pantoprazole and sucralfate
CKD stage IIIa:
- Renal function appears close to baseline
- Will monitor and renally dose all medications
Abnormal LFTs:
-Very mildly elevated ALT, T. bili now within normal limit
- Will monitor
DVT prophylaxis: Subcu heparin
CODE STATUS: Full code, confirmed with patient and family
Total time spent to see the patient, examine the patient, review data and lab result, discuss treatment plan with patient, nursing staff around 55 minutes
Anticipated Discharge: > 48 hours
Subjective/Interval History
-
Date of Service: January 26, 2025
Objective Data
-
Labs:
Laboratory Results
01/26/25
06:49
WBC 9.9
Hgb 10.8 L
Hct 33.5 L
Plt Count 188 D
Sodium 143
Potassium 4.6
Chloride 109 H
Carbon Dioxide 23
BUN 27 H
Creatinine 1.5 H
Glucose 272 H
Calcium 8.1 L
Vital Signs:
Vital Signs
Temp Pulse Resp BP Pulse Ox
97.7 F 87 20 120/64 94
01/26/25 07:00 01/26/25 07:00 01/26/25 07:00 01/26/25 07:00 01/26/25 07:00
I&O
01/25/25 01/26/25 01/27/25
06:59 06:59 06:59
Intake Total 1470 / 1470 750 / 750
Output Total 250 / 250 800 / 800
Balance 1220 / 1220 -50 / -50
[2025-01-26 11:00] VITALS: BP 122/69
--- NOTE | 2025-01-26 11:41 | PTOTSP ---
Video Swallow Examination
Patient presents with an oral/pharyngeal dysphagia characterized by instances of disorganized oral transfer, and delayed laryngeal vestibular closure with thin and mildly thick liquids resulting in trace but deep laryngeal penetration, and silent
trace aspiration on underside of vocal folds with thin liquid. Use of chin tuck eliminated further instances of laryngeal penetration and aspiration. A cricopharyngeal bar present and likely contributed to trace pyriform sinus stasis. Trace to mild
vallecular stasis with moderately thick liquids and pudding trials. Lateral observation of esophagus revealed some retained contrast distally suggesting contents slow to empty. Patient with known hiatal hernia placing patient at increased risk for
reverse aspiration.
Recommend:
1. IDDSI 5 (minced and moist) given patient report of difficulty chewing due to missing lower teeth.
2. Thin liquid by single sip and use of chin tuck
3. Meds crushed in applesauce.
5. Eat slowly and intersperse sip of liquid throughout meal to assist with esophageal clearance.
6. Aspiration and Reflux precautions.
ST will follow briefly to ensure diet tolerance and understanding/adherence to strategies.
[2025-01-26] MEDS: CARAFATE 1 GRAM PO (12:37)
[2025-01-26] MEDS: VIBRAMYCIN 100 MG PO ×2 (12:37→20:03)
[2025-01-26] MEDS: PROTONIX 40 MG PO (12:39)
--- NOTE | 2025-01-26 14:28 | CON.ID ---
Consultation
-
Date/Time Consultation Requested: 01/26/2025 0819
Date/Time Consultation Performed: 01/26/2025 1420
Requesting Provider: Dr. Sewell
Performing Provider: Dr. Galvan
Reason for Consultation: Pneumonia
Chief Complaint / Past History
History of Present Illness
Tobias Shell is an 84-year-old man being evaluated at the request of Dr. Sewell in regards to pneumonia. History is obtained from chart review, along with patient interview.
The patient resides in [place] for 6 months of the time and notes that in August he was hospitalized for 8 days with RSV. He also developed influenza in September, but otherwise has been doing well.
He and his have traveled back to the area, and he began to feel ill when [facility] about 4 or 5 days ago.
The patient presented to [facility] on 01/24 after developing weakness to the point that he could not walk. He reported at presentation that his cough had become quite productive. He reports green to yellow sputum. He admits to shortness
of breath.
He has been started on empiric antibiotics. Currently he reports feeling 'fair', but notes ongoing fatigue. SOB improved.
Past History
Additional Past Medical History:
CAD
CKD
BPH
Hiatal hernia
Anemia
Additional Past Surgical History:
PCI
Hernia repair
Lumbar spinal surgery
Allergy History:
ondansetron [From Zofran] Allergy (Unknown, Verified 01/24/25 07:50)
Vomiting
hydromorphone [From Dilaudid] Adverse Reaction (Unknown, Verified 01/24/25 07:50)
Pharmacy to Review
morphine Adverse Reaction (Unknown, Verified 01/24/25 07:50)
Pharmacy to Review
Medications Reviewed: Yes
Current Antibiotics:
Ceftriaxone 1 g IV every 24 hours
Doxycycline 100 mg p.o. every 12 hours
Social History
Tobacco: Former Smoker
Alcohol: None
Drug: None
Personal:
Review of Systems
Vital Signs
Temp Pulse Resp BP Pulse Ox
97.7 F 87 20 120/64 94
01/26/25 07:00 01/26/25 07:00 01/26/25 07:00 01/26/25 07:00 01/26/25 07:00
Physical Exam
Physical Exam
Constitutional: No Acute Distress, Comfortable and Non-toxic
Eyes: No Conjunctival Hemorrhage and Sclera Anicteric
Cardiovascular: Regular Rate and S1/S2; Negative S3/S4
Pulmonary: Wheezes, Rhonchi (few; scattered) and Non Labored; Negative Rales
Gastrointestinal: Soft, Non Tender and Non Distended
Extremities: Negative Edema, Cyanosis or Erythema
Neurological: Awake and Alert
Psychological: Calm
Lab / Diagnostic Study Results
01/26/25 06:49
01/26/25 06:49
Abs Immat Gran (auto) 0.2 10^3/uL (0-0.05) H 01/26/25 06:49
Absolute Neuts (auto) 8.6 10^3/uL (1.4-6.5) H 01/26/25 06:49
Absolute Lymphs (auto) 0.3 10^3/uL (1.2-3.4) L 01/26/25 06:49
Absolute Monos (auto) 0.7 10^3/uL (0.1-0.6) H 01/26/25 06:49
Absolute Basos (auto) 0.0 10^3/uL (0-0.2) 01/26/25 06:49
Total Counted 100 01/25/25 06:54
Immature Gran % 2.3 % (0-0.5) H 01/26/25 06:49
Neutrophils % 86.7 % (42.2-75.2) H 01/26/25 06:49
Lymphocytes % 3.3 % (20.5-51.1) L 01/26/25 06:49
Monocytes % 7.4 % (1.7-9.3) 01/26/25 06:49
Eosinophils % 0.2 % (0-6) 01/26/25 06:49
Basophils % 0.1 % (0-2) 01/26/25 06:49
Abs Neuts (Manual) 11.5 10^3/uL (1.4-6.5) H 01/25/25 06:54
Segmented Neutrophils 69 % (42-75) 01/25/25 06:54
Band Neutrophils 3 % (0-3) 01/25/25 06:54
Lymphocytes (Manual) 2 % (20-51) L 01/25/25 06:54
Eosinophils (Manual) 2 % (0-6) 01/25/25 06:54
Lactic Acid 1.7 mmol/L (0.7-2.0) 01/24/25 11:27
Microbiology Results
Micro:
01/24/25 08:13 Blood Culture - Preliminary
Blood/Venous No Growth in 48 hours- Final report to follow
01/24/25 17:07 MRSA Screen - Final
Throat/Pharynx No Methicillin Resistant Staphylococcus aureus isolated.
01/24/25 07:14 Blood Culture - Preliminary
Blood/Venous No Growth in 48 hours- Final report to follow
01/24/25 07:21 Respiratory Culture - Final
Sputum Haemophilus influenzae
Gram Stain - Final
01/24/25 09:19 Streptococcus pneumoniae Antigen (M - Final
Urine Negative for Streptococcus pneumoniae antigen.
A negative result does not exclude infection with
Streptococcus pneumoniae. Clinical correlation is
recommended.
01/24/25 08:13 Legionella Urinary Antigen - Final
Urine Negative for Legionella pneumophila Serogroup 1 antigen.
A negative result does not rule out the possiblity of
Legionella infection due to other serogroups or species of
Legionella. Clinical correlation is recommended.
01/24/25 05:41 Influenza Types A & B (VICKY) - Final
Nasal Swab Negative for Influenza A & B, NAAT
Negative results must be combined with clinical observations
and patient history.
Nucleic Acid Amplification test (NAAT)performed on the
[employer] platform.
01/24/25 05:41 Respiratory Syncytial Virus Ag - Final
Nasal Swab Negative for Respiratory Syncytial Virus.
A false negative result may be obtained with a specimen
collected early in the acute phase. If symptoms persist, a
new specimen should be tested.
Imaging:
01/25/2025 CT chest without contrast: CT findings suggesting a background of interstitial fibrosis. Scattered areas of airspace opacity. Minimal bilateral pleural effusions noted. Please see full dictation for additional detail. Film personally
viewed.
Assessment / Plan
CAP secondary to haemophilus influenza
Leukocytosis; improved
CAD
CKD
BPH
Hiatal hernia
Anemia
Recommendations:
Continue with ceftriaxone while inpatient. At discharge, can transition to oral cefdinir 300 mg p.o. twice daily, to complete a 14-day course.
Monitor white count and temperature curve.
[2025-01-26 15:00] VITALS: BP 132/66
[2025-01-26] MEDS: DUONEB 3 ML INH ×2 (15:31→19:40)
[2025-01-26] MEDS: XALATAN OPHTHALMIC SOLUTION 1 DROP OPHTH (16:51)
[2025-01-26] MEDS: ULTRAM 50 MG PO ×2 (16:51→22:34)
[2025-01-26 19:30] VITALS: BP 131/63
[2025-01-26] MEDS: PULMICORT 0.5 MG INH (19:40)
[2025-01-26] MEDS: MUCINEX 1200 MG PO (20:03)
[2025-01-26] MEDS: SEROQUEL 50 MG PO (22:34)
[2025-01-26] MEDS: FLOMAX 0.4 MG PO (22:34)
[2025-01-26 23:28] VITALS: BP 120/52
[2025-01-27] VITALS (7 sets, daily range): BP systolic 131–140; BP diastolic 67–88; PULSE 97–98; O2SAT 96
[2025-01-27] MEDS: HEPARIN 5000 UNITS SC ×3 (00:26→15:23)
[2025-01-27] MEDS: SOLU-MEDROL PF 40 MG IV ×2 (00:26→12:02)
[2025-01-27] MEDS: PULMICORT 0.5 MG INH ×2 (07:34→19:51)
[2025-01-27] MEDS: DUONEB 3 ML INH ×4 (07:35→19:51)
[2025-01-27 07:37] LABS: % Basophils 0.1 % (0-2); % Immature Granulocytes 3.6 % (0-0.5); % Lymphocytes 3.1 % (20.5-51.1); % Monocytes 8.3 % (1.7-9.3); % Neutrophils 84.9 % (42.2-75.2); Absolute Immature Granulocytes 0.6 10^3/uL (0-0.05); Absolute Lymphocytes 0.5 10^3/uL (1.2-3.4); Absolute Monocytes 1.3 10^3/uL (0.1-0.6); Absolute Neutrophils 13.3 10^3/uL (1.4-6.5); Hematocrit 30.9 % (39.0-52.0); Hemoglobin 9.8 g/dL (13.0-18.0); Mean Corp Hgb Conc. 31.7 g/dL (33.0-37.0); Mean Corpuscular Hgb 29.1 pg (27.0-31.0); Mean Corpuscular Volume 91.7 fL (80.0-94.0); Mean Platelet Volume 10.7 fL (7.4-10.4); Nucleated Red Blood Cells % 0 % (-); Platelet Count 212 10^3/uL (130-400); Red Blood Cell Count 3.37 10^6/uL (4.70-6.10); Red Cell Dist. Width 14.9 % (11.5-14.5); White Blood Cell Count 15.7 10^3/uL (4.8-10.8)
[2025-01-27 07:38] LABS: Blood Urea Nitrogen 42 mg/dl (9-20); Calcium 8.2 mg/dl (8.4-10.2); Carbon Dioxide 23 mmol/L (22-30); Chloride 116 mmol/L (98-107); Estimated Creatinine Clearance 35 ml/min; Glucose 164 mg/dl (70-99); Magnesium 2.1 mg/dl (1.6-2.3); Phosphorus 2.9 mg/dl (2.5-4.5); Potassium 4.8 mmol/L (3.5-5.1); Sodium 145 mmol/L (135-145); eGFR 36.89
--- NOTE | 2025-01-27 07:56 | W.PN.PUL.V3 ---
Today's Communication / Plan
-
Wean oxygen
Continue methylprednisolone
Continue antibiotics
Mucus clearing devices
Assessment
-
84-year-old male with a history of CAD, chronic renal failure, scoliosis, hiatal hernia presented with 5 days of fevers, chills, weakness and cough noted to have pneumonia-pulmonary consulted for shortness of breath/pneumonia 01/26/2025.
Community-acquired pneumonia
Leukocytosis
Elevated troponin
Elevated LFTs
Mild uqyyre-hkvvfqwstc-fasizhlpqw 10.8
Conditions present prior to admission:
CAD/stent.
Chronic renal failure stage IIIa.
Scoliosis.
Hiatal hernia.
BPH.
Former pgzmlu-78-jazz-year, quit 46 years ago.
Plan
Respiratory decompensation likely due to glcrnwutp-fcppyuadp-tujxedyy
Supplemental oxygen as needed-currently on 3 L - 93% saturation
Nebulizers-DuoNebs 4 times daily and budesonide nebulizers twice daily
Mucinex 1200 mg twice daily
Mucus clearing devices
Methylprednisolone initiated-appropriate with significant wheezing on exam-no change
Aspiration precautions
Speech therapy evaluation-video swallow pending
Pulmonary status will need to be reevaluated once pneumonia clears-May be a component of chronic interstitial lung disease
Recommend outpatient pulm evaluation including PFTs
Radiographic zvtvmt-hr-kih be performed as an outpatient
Cultures reviewed
MRSA screen negative
Urine Legionella and streptococcal antigen negative
Sputum culture-pending
Empiric antibiotics-doxycycline and ceftriaxone initiated and appropriate
Follow leukocytosis
Trend troponin
Monitor hemoglobin
Transfuse if needed
Follow-up LFTs
Monitor blood sugar
Insulin supplementation if needed
DVT prophylaxis-on subcu heparin every 8 hours
GI prophylaxis-on pantoprazole
Nutrition
Early mobilization/physical therapy
They're usually down in [place]-most recently the [facility], prior to that [place] and before that [place]
Spending 2 months this summer in the [facility]
Above recommendations were again reviewed with his was at the bedside during interview and exam.
Outpatient pulmonary follow-up recommended
Diagnostic data:
Chest x-ray 01/24/2025-bilateral patchy opacifications suggesting bilateral pneumonia
CT chest 01/25/2025-CT findings suggest background of interstitial fibrosis, bilateral areas of airspace opacification, minimal bilateral pleural effusions
Subjective Data
-
Date of Service:
Date of Service: January 27, 2025
Chief Complaint: Pulmonary Follow Up and Dyspnea Follow Up
Subjective:
Feels a little better, less wheezy, still has some chest congestion, inability to produce sputum, no chest pain or abdominal pain
Review of Systems
General: Other (Per HPI)
Objective Data
Data Reviewed
Vital Signs / I&O:
Vital Signs
Temp Pulse Resp BP Pulse Ox
97.6 F 82 16 135/73 96
01/27/25 03:39 01/27/25 07:38 01/27/25 07:38 01/27/25 03:39 01/27/25 07:38
Intake and Output
01/26/25 01/27/25 01/28/25
06:59 06:59 06:59
Intake Total 750 / 750 1000 / 1000
Output Total 800 / 800 550 / 550
Balance -50 / -50 450 / 450
SaO2: 96
Nasal Cannula flow liters per minute: 2
Physical Exam
General: Respiratory Distress (n) and Comfortable
HEENT: Normocephalic, Anicteric and Moist Mucous Membranes
Cardiovascular: Regular Rhythm
Respiratory: Wheeze (Expiratory), Crackles (Rare basilar), Rhonchi ( expiratory), Non-Labored Respirations, Accessory Resp Muscle Use (n) and Stridor (n)
GI: Non Distended and Non Tender
Neurology: Awake, Alert and No Motor Deficits
Skin: Warm, Good Color, Cyanosis (n) and Jaundice (n)
Labs/Micro/Reports
Lab Data
01/27/25 06:21
01/27/25 06:21
Microbiology
01/24/25 07:14 Blood/Venous Blood Culture - Preliminary
No Growth in 72 hours- Final report to follow
01/26/25 15:11 Sputum Gram Stain - Preliminary
01/24/25 08:13 Blood/Venous Blood Culture - Preliminary
No Growth in 48 hours- Final report to follow
01/24/25 17:07 Throat/Pharynx MRSA Screen - Final
No Methicillin Resistant Staphylococcus aureus isolated.
01/24/25 07:21 Sputum Respiratory Culture - Final
Haemophilus influenzae
01/24/25 07:21 Sputum Gram Stain - Final
01/24/25 09:19 Urine Streptococcus pneumoniae Antigen (M - Final
Negative for Streptococcus pneumoniae antigen.
A negative result does not exclude infection with
Streptococcus pneumoniae. Clinical correlation is
recommended.
01/24/25 08:13 Urine Legionella Urinary Antigen - Final
Negative for Legionella pneumophila Serogroup 1 antigen.
A negative result does not rule out the possiblity of
Legionella infection due to other serogroups or species of
Legionella. Clinical correlation is recommended.
01/24/25 05:41 Nasal Swab Influenza Types A & B (VICKY) - Final
Negative for Influenza A & B, NAAT
Negative results must be combined with clinical observations
and patient history.
Nucleic Acid Amplification test (NAAT)performed on the
[employer] platform.
01/24/25 05:41 Nasal Swab Respiratory Syncytial Virus Ag - Final
Negative for Respiratory Syncytial Virus.
A false negative result may be obtained with a specimen
collected early in the acute phase. If symptoms persist, a
new specimen should be tested.
--- NOTE | 2025-01-27 08:37 | W.PN.HOSP.TC ---
Today's Communication/Plan
-
IV Steroid
Nebs
IV Abx
Bladder scan
Assessment / Plan
Assessment / Plan
General: No Apparent Distress, Comfortable and Conversant
HEENT: NormoCephalic, Moist mucous membranes, nasal cannula in place
Respiratory: Scattered rhonchi and expiratory wheezing, Non Labored Respirations
Cardiac: S1/S2 and Regular Rhythm; No Rub or Gallop
GI: Soft, Non Tender, Non Distended and Normal Bowel Sounds
Musculoskeletal: No Edema, no deformity
Skin: Warm and dry
: NO Oliver
Neuro: Awake, Alert, Nonfocal/grossly intact
Psych: Calm and Intact Judgment/Insight
Sepsis with lactic acidosis / septic shock POA secondary to aspiration pneumonia:
- aspiration is a contributing factor
- s/p IVF . WBC is normal now, afebrile
- can stop further IVF
- Continue antibiotics with ceftriaxone and doxycycline
- Strep pneumo and Legionella urinary antigens negative,
- consulted pulmonary & ID doctors
- Follow-up cultures
- Nebulizers as needed
# Suspect underlying ILD
Former vxlzzk-89-kyip-year, quit 46 years ago.
c/w IV steroid, c/w nebulizer DuoNeb & Pulmicort
f/w pulmonary recommendations
# Leukocytosis, related to steroid and infection
# Dysphagia
Seen by speech, recommended IDDS-5 with thin liquids
Acute hypoxic respiratory failure:
- Secondary to pneumonia from aspiration
- Continue supplemental oxygen, titrate as able
- Breathing treatments as needed
- Started IV steroids with Solu-Medrol 40 mg every 12 hours
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
# Mild iiirej-nqeszjtbgi-jynaexxrzu
chronic
Elevated troponin: non ischemic myocardial injury due to Sepsis
- Mild, peaked at 0.055, now within normal limits
- Do not suspect acute cardiac ischemia, likely due to respiratory distress in the setting of pneumonia
- History of CAD, not on antiplatelets as an outpatient due to anemia, continue carvedilol
Hiatal hernia:
- Possibly contributing to frequent cough/dysphagia
- Continue pantoprazole and sucralfate
CKD stage IIIa:
- Renal function appears close to baseline
- Will monitor and renally dose all medications
Bladder scan no retention
Abnormal LFTs:
-Very mildly elevated ALT, T. bili now within normal limit
- Will monitor
DVT prophylaxis: Subcu heparin
CODE STATUS: Full code, confirmed with patient and family
Total time spent to see the patient, examine the patient, review data and lab result, discuss treatment plan with patient, nursing staff around 55 minutes
Anticipated Discharge: > 48 hours
Subjective/Interval History
-
Date of Service: January 27, 2025
He feels better
No fevers
Objective Data
-
Labs:
Laboratory Results
01/27/25
06:21
WBC 15.7 H
Hgb 9.8 L
Hct 30.9 L
Plt Count 212
Sodium 145
Potassium 4.8
Chloride 116 H
Carbon Dioxide 23
BUN 42 H
Creatinine 1.8 H
Glucose 164 H
Calcium 8.2 L
Vital Signs:
Vital Signs
Temp Pulse Resp BP Pulse Ox
97.6 F 82 16 135/73 96
01/27/25 03:39 01/27/25 07:38 01/27/25 07:38 01/27/25 03:39 01/27/25 07:56
I&O
01/26/25 01/27/25 01/28/25
06:59 06:59 06:59
Intake Total 750 / 750 1000 / 1000
Output Total 800 / 800 550 / 550
Balance -50 / -50 450 / 450
[2025-01-27] MEDS: D5/0.9% SODIUM CHLORIDE 1000 IV (08:44)
[2025-01-27] MEDS: VIBRAMYCIN 100 MG PO ×2 (08:58→20:54)
[2025-01-27] MEDS: MUCINEX 1200 MG PO ×2 (08:58→20:53)
[2025-01-27] MEDS: CARAFATE 1 GRAM PO ×2 (08:58→20:57)
[2025-01-27] MEDS: PROTONIX IV 40 MG IV (08:59)
[2025-01-27] MEDS: NSS (PRESERVATIVE FREE) 10 ML IV (09:00)
[2025-01-27] MEDS: ROCEPHIN 1000 MG IV (09:00)
[2025-01-27] MEDS: STERILE WATER FOR INJECTION 10 ML IV (09:00)
--- NOTE | 2025-01-27 11:35 | CM ---
CM reviewed chart, patient seen bedside with . Patient currently on O2, does not wear O2. Patient/ requesting PT evals, TT to Hospitalist. Patient reports he keeps a rolling walker in the car, typically uses for longer distances. Patient
remains in IV antibiotics, IV steroids. CM will continue to follow for all discharge planning needs.
Plan; watch for PT evals, watch for O2 needs, pt visiting from [place]
--- NOTE | 2025-01-27 12:07 | W.PN.ID1 ---
Date of Service
Date of Service: January 27, 2025
Today's Communication
Continue ceftriaxone.
Assessment / Plan
CAP secondary to haemophilus influenza
Leukocytosis increased due to steroid
ILD (on CT)
CAD
CKD
BPH
Hiatal hernia
Anemia
Recommendations:
Continue with ceftriaxone while inpatient. At discharge, can transition to oral cefdinir 300 mg p.o. twice daily, to complete a 14-day course.
Monitor white count and temperature curve.
Chief Complaint
-: Pneumonia
Subjective / Review of Systems
Cough is less.
Vital Signs / Physical Exam
Vital Signs
Vital Signs
Temp Pulse Resp BP Pulse Ox
97.5 F 82 16 133/67 97
01/27/25 11:00 01/27/25 11:04 01/27/25 11:04 01/27/25 11:00 01/27/25 11:04
Physical Exam
Constitutional: No Acute Distress
Eyes: No Conjunctival Hemorrhage and Sclera Anicteric
Cardiovascular: Regular Rate and S1/S2
Pulmonary: Rales (Crackles bilaterally)
Gastrointestinal: Soft, Non Tender, Non Distended and Normal Bowel Sounds
Neurological: AO x 3
Objective Data
Lab Data
Lab Results
01/27/25 06:21
01/27/25 06:21
Estimated Creat Clear 35 ml/min 01/27/25 06:21
Lactic Acid 1.7 mmol/L (0.7-2.0) 01/24/25 11:27
Total Bilirubin 0.8 mg/dl (0.2-1.3) D 01/25/25 06:54
AST 28 U/L (17-59) 01/25/25 06:54
ALT 59 U/L (0-50) H 01/25/25 06:54
Alkaline Phosphatase 95 U/L (38-126) 01/25/25 06:54
Most recent labs reviewed.
Micro Results:
01/24/25 08:13 Blood Culture - Preliminary
Blood/Venous No Growth in 72 hours- Final report to follow
01/24/25 07:14 Blood Culture - Preliminary
Blood/Venous No Growth in 72 hours- Final report to follow
01/26/25 15:11 Respiratory Culture - Pending
Sputum Gram Stain - Preliminary
01/24/25 17:07 MRSA Screen - Final
Throat/Pharynx No Methicillin Resistant Staphylococcus aureus isolated.
01/24/25 07:21 Respiratory Culture - Final
Sputum Haemophilus influenzae
Gram Stain - Final
01/24/25 09:19 Streptococcus pneumoniae Antigen (M - Final
Urine Negative for Streptococcus pneumoniae antigen.
A negative result does not exclude infection with
Streptococcus pneumoniae. Clinical correlation is
recommended.
01/24/25 08:13 Legionella Urinary Antigen - Final
Urine Negative for Legionella pneumophila Serogroup 1 antigen.
A negative result does not rule out the possiblity of
Legionella infection due to other serogroups or species of
Legionella. Clinical correlation is recommended.
01/24/25 05:41 Influenza Types A & B (VICKY) - Final
Nasal Swab Negative for Influenza A & B, NAAT
Negative results must be combined with clinical observations
and patient history.
Nucleic Acid Amplification test (NAAT)performed on the
[employer] NOW platform.
01/24/25 05:41 Respiratory Syncytial Virus Ag - Final
Nasal Swab Negative for Respiratory Syncytial Virus.
A false negative result may be obtained with a specimen
collected early in the acute phase. If symptoms persist, a
new specimen should be tested.
Imaging:
01/25/2025 CT chest without contrast: CT findings suggesting a background of interstitial fibrosis. Scattered areas of airspace opacity. Minimal bilateral pleural effusions noted. Please see full dictation for additional detail. Film personally
viewed.
[2025-01-27] MEDS: XALATAN OPHTHALMIC SOLUTION 1 DROP OPHTH (17:24)
[2025-01-27] MEDS: FLOMAX 0.4 MG PO (20:54)
[2025-01-27] MEDS: SEROQUEL 50 MG PO (20:54)
[2025-01-28] MEDS: HEPARIN 5000 UNITS SC ×3 (00:14→16:11)
[2025-01-28] MEDS: SOLU-MEDROL PF 40 MG IV (00:15)
[2025-01-28] MEDS: ULTRAM 50 MG PO ×2 (02:20→13:20)
[2025-01-28] MEDS: PULMICORT 0.5 MG INH ×2 (08:03→19:38)
[2025-01-28] MEDS: DUONEB 3 ML INH ×4 (08:03→19:38)
[2025-01-28 08:05] VITALS: BP 172/88
[2025-01-28] MEDS: NSS (PRESERVATIVE FREE) 10 ML IV (08:22)
[2025-01-28] MEDS: STERILE WATER FOR INJECTION 10 ML IV (08:23)
[2025-01-28] MEDS: ROCEPHIN 1000 MG IV (08:23)
[2025-01-28] MEDS: PROTONIX IV 40 MG IV (08:23)
[2025-01-28] MEDS: CARAFATE 1 GRAM PO ×2 (08:25→21:34)
[2025-01-28] MEDS: VIBRAMYCIN 100 MG PO (08:26)
[2025-01-28] MEDS: MUCINEX 1200 MG PO ×2 (08:26→21:34)
--- NOTE | 2025-01-28 09:21 | W.PN.PUL.V3 ---
Today's Communication / Plan
-
Change methylprednisolone to prednisone with slow taper
Continue nebulizers
Antibiotics
Wean oxygen
Increase activity
Assessment
-
84-year-old male with a history of CAD, chronic renal failure, scoliosis, hiatal hernia presented with 5 days of fevers, chills, weakness and cough noted to have pneumonia-pulmonary consulted for shortness of breath/pneumonia 01/26/2025.
Community-acquired pneumonia
Leukocytosis
Elevated troponin
Elevated LFTs
Mild akgpva-mzjprvnunl-csagfaepmd 10.8
Conditions present prior to admission:
CAD/stent.
Chronic renal failure stage IIIa.
Scoliosis.
Hiatal hernia.
BPH.
Former [id number]-[id number]-bwgj-year, quit 46 years ago.
Plan
Respiratory decompensation likely due to cntinwssh-uqdhxqdga-fzjzyxds
Supplemental oxygen as needed-currently on 2 L - 96%-now on room air-saturation pending
Nebulizers-DuoNebs 4 times daily and budesonide nebulizers twice daily
Mucinex 1200 mg twice daily
Mucus clearing devices
Methylprednisolone initiated-appropriate with significant wheezing on exam-no change
Aspiration precautions
Speech therapy evaluation-video swallow pending
Pulmonary status will need to be reevaluated once pneumonia clears-May be a component of chronic interstitial lung disease
Recommend outpatient pulm evaluation including PFTs
Radiographic qhsovp-mj-yys be performed as an outpatient
Cultures reviewed
MRSA screen negative
Urine Legionella and streptococcal antigen negative
Sputum culture 01/24/2025-haemophilus influenza
Repeat sputum culture 01/26/2025-usual respiratory prakash
Empiric antibiotics-doxycycline and ceftriaxone initiated and appropriate
Infectious disease following-correspondence reviewed
Follow leukocytosis
Trended troponin-negative
Monitor hemoglobin
Transfuse if needed
Monitor blood sugar
Insulin supplementation if needed
DVT prophylaxis-on subcu heparin every 8 hours
GI prophylaxis-on pantoprazole
Nutrition
Early mobilization/physical therapy
They're usually down in [place]-most recently the [facility], prior to that [place] and before that [place]
Spending 2 months this summer in the [facility]
Above recommendations were again reviewed with his was at the bedside during interview and exam.
Outpatient pulmonary follow-up recommended
Diagnostic data:
Chest x-ray 01/24/2025-bilateral patchy opacifications suggesting bilateral pneumonia
CT chest 01/25/2025-CT findings suggest background of interstitial fibrosis, bilateral areas of airspace opacification, minimal bilateral pleural effusions
Subjective Data
-
Date of Service:
Date of Service: January 28, 2025
Chief Complaint: Pulmonary Follow Up and Dyspnea Follow Up
Subjective:
Feels better, less wheezy, less shortness of breath, less chest congestion, no chest pain or abdominal pain
Review of Systems
General: Other (Per HPI)
Objective Data
Data Reviewed
Vital Signs / I&O:
Vital Signs
Temp Pulse Resp BP Pulse Ox
97.9 F 100 18 172/88 93
01/28/25 08:05 01/28/25 08:05 01/28/25 08:05 01/28/25 08:05 01/28/25 08:05
Intake and Output
01/27/25 01/28/25 01/29/25
06:59 06:59 06:59
Intake Total 1000 / 1000 950 / 950
Output Total 550 / 550 850 / 850
Balance 450 / 450 100 / 100
SaO2: 93
Nasal Cannula flow liters per minute: 2
Physical Exam
General: Respiratory Distress (n) and Comfortable
HEENT: Normocephalic, Anicteric and Moist Mucous Membranes
Cardiovascular: Regular Rhythm
Respiratory: Wheeze (Expiratory-improved), Crackles (Rare basilar), Rhonchi ( expiratory), Non-Labored Respirations, Accessory Resp Muscle Use (n) and Stridor (n)
GI: Non Distended and Non Tender
Neurology: Awake, Alert and No Motor Deficits
Skin: Warm, Good Color, Cyanosis (n) and Jaundice (n)
Labs/Micro/Reports
Lab Data
01/27/25 06:21
01/27/25 06:21
Microbiology
01/24/25 08:13 Blood/Venous Blood Culture - Preliminary
No Growth in 4 days- Final report to follow
01/24/25 07:14 Blood/Venous Blood Culture - Preliminary
No Growth in 4 days- Final report to follow
01/26/25 15:11 Sputum Respiratory Culture - Preliminary
Usual Respiratory Prakash
01/26/25 15:11 Sputum Gram Stain - Preliminary
01/24/25 17:07 Throat/Pharynx MRSA Screen - Final
No Methicillin Resistant Staphylococcus aureus isolated.
01/24/25 07:21 Sputum Respiratory Culture - Final
Haemophilus influenzae
01/24/25 07:21 Sputum Gram Stain - Final
--- NOTE | 2025-01-28 10:51 | W.PN.HOSP.TC ---
Today's Communication/Plan
-
Change to prednisone to today date
Assessment / Plan
Assessment / Plan
General: No Apparent Distress, Comfortable and Conversant
HEENT: NormoCephalic, Moist mucous membranes, nasal cannula in place
Respiratory: Scattered rhonchi and expiratory wheezing, Non Labored Respirations
Cardiac: S1/S2 and Regular Rhythm; No Rub or Gallop
GI: Soft, Non Tender, Non Distended and Normal Bowel Sounds
Musculoskeletal: No Edema, no deformity
Skin: Warm and dry
: NO Oliver
Neuro: Awake, Alert, Nonfocal/grossly intact
Psych: Calm and Intact Judgment/Insight
Sepsis with lactic acidosis / septic shock POA secondary to aspiration pneumonia:
- aspiration is a contributing factor
- s/p IVF . WBC is normal now, afebrile
- no further IVF
- Continue antibiotics with ceftriaxone and doxycycline
- Strep pneumo and Legionella urinary antigens negative, MRSA screen negative
- consulted pulmonary & ID doctors
- Follow-up cultures
- Nebulizers as needed
# Suspect underlying ILD
Former [id number]-ubyd-year, quit 46 years ago.
s/p IV steroid, change to oral prednisone, to start today
c/w nebulizer DuoNeb & Pulmicort
f/w pulmonary recommendations
# Leukocytosis, related to steroid and infection
# Dysphagia
Seen by speech, recommended IDDS-5 with thin liquids
Acute hypoxic respiratory failure:
- Secondary to pneumonia from aspiration
- Continue supplemental oxygen, titrate as able
- Breathing treatments as needed
- Started IV steroids with Solu-Medrol 40 mg every 12 hours
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
# Mild sxcycu-nbensqpthm-otxgqkmame
chronic
Elevated troponin: non ischemic myocardial injury due to Sepsis
- Mild, peaked at 0.055, now within normal limits
- Do not suspect acute cardiac ischemia, likely due to respiratory distress in the setting of pneumonia
- History of CAD, not on antiplatelets as an outpatient due to anemia, continue carvedilol
Hiatal hernia:
- Possibly contributing to frequent cough/dysphagia
- Continue pantoprazole and sucralfate
CKD stage IIIa:
- Renal function appears close to baseline
- Will monitor and renally dose all medications
Bladder scan no retention
Abnormal LFTs:
-Very mildly elevated ALT, T. bili now within normal limit
- Will monitor
DVT prophylaxis: Subcu heparin
CODE STATUS: Full code, confirmed with patient and family
Total time spent to see the patient, examine the patient, review data and lab result, discuss treatment plan with patient, nursing staff around 55 minutes
Anticipated Discharge: 24 - 48 hours
Subjective/Interval History
-
Date of Service: January 28, 2025
He feels same breathing level
no chest pain
Objective Data
-
Vital Signs:
Vital Signs
Temp Pulse Resp BP Pulse Ox
97.9 F 100 18 172/88 93
01/28/25 08:05 01/28/25 08:05 01/28/25 08:05 01/28/25 08:05 01/28/25 09:21
I&O
01/27/25 01/28/25 01/29/25
06:59 06:59 06:59
Intake Total 1000 / 1000 950 / 950
Output Total 550 / 550 850 / 850
Balance 450 / 450 100 / 100
[2025-01-28 12:53] VITALS: BP 158/80; O2SAT 90
--- NOTE | 2025-01-28 13:16 | CM ---
CM reviewed chart, patient seen bedside with . CM discussed PT/OT recommendations of home health- patient and requesting a script for outpatient therapy upon discharge. CM will continue to follow for all discharge planning needs.
Plan; home with , will need script for PT/OT upon d.c
--- NOTE | 2025-01-28 13:44 | W.PN.ID1 ---
Date of Service
Date of Service: January 28, 2025
Today's Communication
Continue ceftriaxone.
Assessment / Plan
CAP secondary to haemophilus influenza
Leukocytosis increased due to steroid
ILD (on CT)
CAD
CKD
BPH
Hiatal hernia
Anemia
Recommendations:
Continue with ceftriaxone while inpatient. At discharge, can transition to oral cefdinir 300 mg p.o. twice daily, to complete a 14-day course.
DC doxycycline.
Monitor white count and temperature curve.
Chief Complaint
-: Pneumonia
Subjective / Review of Systems
Off oxygen.
Has coughing fits.
Vital Signs / Physical Exam
Vital Signs
Vital Signs
Temp Pulse Resp BP Pulse Ox
97.9 F 89 18 172/88 94
01/28/25 08:05 01/28/25 11:20 01/28/25 11:20 01/28/25 08:05 01/28/25 11:20
Physical Exam
Constitutional: Chronically Ill and Non-toxic
Pulmonary: Rales (bilateral)
Gastrointestinal: Soft, Non Tender, Non Distended and Normal Bowel Sounds
Extremities: Negative Edema
Neurological: AO x 3
Objective Data
Lab Data
Lab Results
01/27/25 06:21
01/27/25 06:21
Estimated Creat Clear 35 ml/min 01/27/25 06:21
Lactic Acid 1.7 mmol/L (0.7-2.0) 01/24/25 11:27
Total Bilirubin 0.8 mg/dl (0.2-1.3) D 01/25/25 06:54
AST 28 U/L (17-59) 01/25/25 06:54
ALT 59 U/L (0-50) H 01/25/25 06:54
Alkaline Phosphatase 95 U/L (38-126) 01/25/25 06:54
Most recent labs reviewed.
Micro Results:
01/26/25 15:11 Respiratory Culture - Final
Sputum Usual Respiratory Cecily
Gram Stain - Final
01/24/25 08:13 Blood Culture - Preliminary
Blood/Venous No Growth in 4 days- Final report to follow
01/24/25 07:14 Blood Culture - Preliminary
Blood/Venous No Growth in 4 days- Final report to follow
01/24/25 17:07 MRSA Screen - Final
Throat/Pharynx No Methicillin Resistant Staphylococcus aureus isolated.
01/24/25 07:21 Respiratory Culture - Final
Sputum Haemophilus influenzae
Gram Stain - Final
01/24/25 09:19 Streptococcus pneumoniae Antigen (M - Final
Urine Negative for Streptococcus pneumoniae antigen.
A negative result does not exclude infection with
Streptococcus pneumoniae. Clinical correlation is
recommended.
01/24/25 08:13 Legionella Urinary Antigen - Final
Urine Negative for Legionella pneumophila Serogroup 1 antigen.
A negative result does not rule out the possiblity of
Legionella infection due to other serogroups or species of
Legionella. Clinical correlation is recommended.
01/24/25 05:41 Influenza Types A & B (VICKY) - Final
Nasal Swab Negative for Influenza A & B, NAAT
Negative results must be combined with clinical observations
and patient history.
Nucleic Acid Amplification test (NAAT)performed on the
[employer] ID NOW platform.
01/24/25 05:41 Respiratory Syncytial Virus Ag - Final
Nasal Swab Negative for Respiratory Syncytial Virus.
A false negative result may be obtained with a specimen
collected early in the acute phase. If symptoms persist, a
new specimen should be tested.
Imaging:
01/25/2025 CT chest without contrast: CT findings suggesting a background of interstitial fibrosis. Scattered areas of airspace opacity. Minimal bilateral pleural effusions noted. Please see full dictation for additional detail. Film personally
viewed.
[2025-01-28 15:53] VITALS: BP 162/92
[2025-01-28] MEDS: XALATAN OPHTHALMIC SOLUTION 1 DROP OPHTH (17:16)
[2025-01-28] MEDS: SEROQUEL 50 MG PO (21:34)
[2025-01-28] MEDS: FLOMAX 0.4 MG PO (21:34)
[2025-01-28 23:33] VITALS: BP 133/60
[2025-01-29] MEDS: HEPARIN 5000 UNITS SC ×4 (00:35→23:30)
[2025-01-29] MEDS: ULTRAM 50 MG PO ×2 (02:40→19:51)
[2025-01-29] MEDS: DUONEB 3 ML INH ×4 (07:34→20:14)
[2025-01-29] MEDS: PULMICORT 0.5 MG INH ×2 (07:34→20:14)
[2025-01-29] MEDS: CARAFATE 1 GRAM PO ×2 (07:42→19:51)
[2025-01-29] MEDS: MUCINEX 1200 MG PO (07:43)
[2025-01-29] MEDS: DELTASONE 40 MG PO (07:43)
[2025-01-29 07:45] VITALS: BP 142/78
[2025-01-29] MEDS: PROTONIX IV 40 MG IV (07:52)
[2025-01-29] MEDS: NSS (PRESERVATIVE FREE) 10 ML IV (07:52)
[2025-01-29] MEDS: ROCEPHIN 1000 MG IV (07:53)
[2025-01-29] MEDS: STERILE WATER FOR INJECTION 10 ML IV (07:53)
--- NOTE | 2025-01-29 08:07 | W.PN.PUL.V3 ---
Today's Communication / Plan
-
Check rest and exercise oximetry
Prednisone 40 mg with slow taper.
Continue nebulizers.
Finite course of antibiotics.
Outpatient radiographic follow-up
Assessment
-
84-year-old male with a history of CAD, chronic renal failure, scoliosis, hiatal hernia presented with 5 days of fevers, chills, weakness and cough noted to have pneumonia-pulmonary consulted for shortness of breath/pneumonia 01/26/2025.
Community-acquired pneumonia
Suspected asthma with acute exacerbation
Leukocytosis
Elevated troponin
Elevated LFTs
Mild jumeop-nfioztonhv-wkjjebjent 10.8
Conditions present prior to admission:
CAD/stent.
Chronic renal failure stage IIIa.
Scoliosis.
Hiatal hernia.
BPH.
Former wfbngj-96-alod-year, quit 46 years ago.
Plan
Respiratory decompensation likely due to qoeyicflx-tcgzuojqw-pdffbxsr as well as probable underlying asthma with acute exacerbation-significant wheezing
Supplemental oxygen as needed-currently on 2 L - 96%-now on room air-saturation pending
Nebulizers-DuoNebs 4 times daily and budesonide nebulizers twice daily
Mucinex 1200 mg twice daily
Mucus clearing devices.
Methylprednisolone changed to prednisone 40 mg slow taper
Aspiration precautions
Speech therapy evaluation ongoing-correspondence reviewed-dysphasia 5
Bronchoscopy not indicated at this time
Pulmonary status will need to be reevaluated once pneumonia clears-May be a component of chronic interstitial lung disease
Recommend outpatient pulm evaluation including PFTs
Radiographic eqvjst-bq-mlm be performed as an outpatient
Cultures reviewed
MRSA screen negative
Urine Legionella and streptococcal antigen negative
Sputum culture 01/24/2025-haemophilus influenza
Repeat sputum culture 01/26/2025-usual respiratory prakash
Empiric antibiotics-doxycycline and ceftriaxone initiated and appropriate-finite course
Infectious disease following-correspondence reviewed
Follow leukocytosis
Trended troponin-negative
Monitor hemoglobin
Transfuse if needed
Monitor blood sugar
Insulin supplementation if needed
DVT prophylaxis-on subcu heparin every 8 hours
GI prophylaxis-on pantoprazole
Nutrition
Early mobilization/physical therapy
They're usually down in [place]-most recently [facility] [place], prior to that [place] and before that [place]
Spending 2 months this summer in the [facility]
Dr. Mcghee reviewed with his was at the bedside during interview and exam on 01/27/25, 01/28/25.
Patient would benefit from being discharged on inhalers such as Symbicort 160/4.5 twice daily in addition to Albuterol as needed with prednisone taper and radiographic follow-up to ensure clearing
Outpatient pulmonary follow-up recommended
Diagnostic data:
Chest x-ray 01/24/2025-bilateral patchy opacifications suggesting bilateral pneumonia
CT chest 01/25/2025-CT findings suggest background of interstitial fibrosis, bilateral areas of airspace opacification, minimal bilateral pleural effusions
Subjective Data
-
Date of Service:
Date of Service: January 29, 2025
Chief Complaint: Pulmonary Follow Up and Dyspnea Follow Up
Subjective:
Feels better, less short of breath, does not think he needs oxygen, no chest pain, difficulties mobilizing secretions, no abdominal pain
Review of Systems
General: Other (. HPI)
Objective Data
Data Reviewed
Vital Signs / I&O:
Vital Signs
Temp Pulse Resp BP Pulse Ox
98.3 F 89 18 133/60 90
01/28/25 23:33 01/29/25 07:39 01/29/25 07:39 01/28/25 23:33 01/29/25 07:39
Intake and Output
01/28/25 01/29/25 01/30/25
06:59 06:59 06:59
Intake Total 950 / 950 220 / 220
Output Total 850 / 850 700 / 700
Balance 100 / 100 -480 / -480
SaO2: 90
Nasal Cannula flow liters per minute: 2
Physical Exam
General: Respiratory Distress (n) and Comfortable
HEENT: Normocephalic, Anicteric and Moist Mucous Membranes
Cardiovascular: Regular Rhythm
Respiratory: Wheeze (Expiratory-improved), Crackles (Rare basilar), Rhonchi ( expiratory), Non-Labored Respirations, Accessory Resp Muscle Use (n) and Stridor (n)
GI: Non Distended and Non Tender
Neurology: Awake, Alert and No Motor Deficits
Skin: Warm, Good Color, Cyanosis (n) and Jaundice (n)
Labs/Micro/Reports
Lab Data
01/27/25 06:21
01/27/25 06:21
Microbiology
01/24/25 07:14 Blood/Venous Blood Culture - Final
No Growth - Final Report
01/26/25 15:11 Sputum Respiratory Culture - Final
Usual Respiratory Prakash
01/26/25 15:11 Sputum Gram Stain - Final
01/24/25 08:13 Blood/Venous Blood Culture - Preliminary
No Growth in 4 days- Final report to follow
01/24/25 17:07 Throat/Pharynx MRSA Screen - Final
No Methicillin Resistant Staphylococcus aureus isolated.
[2025-01-29 09:30] VITALS: BP 154/78; O2SAT 92
--- NOTE | 2025-01-29 09:35 | W.PN.HOSP.TC ---
Today's Communication/Plan
-
Not much clinical improvement
Will d/w Pulmonary & ID
Assessment / Plan
Assessment / Plan
PE:
General: No Apparent Distress, chronically ill looking, elderly, Comfortable and Conversant
HEENT: NormoCephalic, Moist mucous membranes, nasal cannula in place
Respiratory: less rales, I did not hear wheezes. Non Labored Respirations
Cardiac: S1/S2 and Regular Rhythm; No Rub or Gallop
GI: Soft, Non Tender, Non Distended and Normal Bowel Sounds
Musculoskeletal: No Edema, no deformity
Skin: Warm and dry
: NO Oliver
Neuro: Awake, Alert, Nonfocal/grossly intact
Psych: Calm and Intact Judgment/Insight
Sepsis with lactic acidosis / septic shock POA secondary to aspiration pneumonia:
- aspiration is a contributing factor
- s/p IVF . WBC is normal now, afebrile
- no further IVF
- Was on ceftriaxone and doxycycline, now only Rocephin, will d/w ID
- Strep pneumo and Legionella urinary antigens negative, MRSA screen negative
- consulted pulmonary & ID doctors
- Sputum culture is polymicrobial
- Nebulizers as needed
# Suspect underlying ILD
Former syiowj-40-qlww-year, quit 46 years ago.
s/p IV steroid, change to oral prednisone, to start today
c/w nebulizer DuoNeb & Pulmicort
f/w pulmonary recommendations
# Leukocytosis, related to steroid and infection
# Dysphagia
Seen by speech, recommended IDDS-5 with thin liquids
Acute hypoxic respiratory failure:
- Secondary to pneumonia from aspiration
- Continue supplemental oxygen, titrate as able
- Breathing treatments as needed
- Started IV steroids with Solu-Medrol 40 mg every 12 hours
- CT chest showed pneumonia with background pulmonary fibrosis, he does not regularly follow with the quality analyst but should do so going forward
# Mild imieqx-mkousutkcm-vpznrrizre
chronic
Elevated troponin: non ischemic myocardial injury due to Sepsis
- Mild, peaked at 0.055, now within normal limits
- Do not suspect acute cardiac ischemia, likely due to respiratory distress in the setting of pneumonia
- History of CAD, not on antiplatelets as an outpatient due to anemia, continue carvedilol
Hiatal hernia:
- Possibly contributing to frequent cough/dysphagia
- Continue pantoprazole and sucralfate
CKD stage IIIa:
- Renal function appears close to baseline
- Will monitor and renally dose all medications
Bladder scan no retention
Abnormal LFTs:
-Very mildly elevated ALT, T. bili now within normal limit
- Will monitor
DVT prophylaxis: Subcu heparin
CODE STATUS: Full code, confirmed with patient and family
Total time spent to see the patient, examine the patient, review data and lab result, discuss treatment plan with patient, pulmonary, nursing staff around 55 minutes
Anticipated Discharge: > 48 hours
Subjective/Interval History
-
Date of Service: January 29, 2025
complains of secretions
Objective Data
-
Vital Signs:
Vital Signs
Temp Pulse Resp BP Pulse Ox
97.9 F 86 20 142/78 90
01/29/25 07:45 01/29/25 07:45 01/29/25 07:45 01/29/25 07:45 01/29/25 08:07
I&O
01/28/25 01/29/25 01/30/25
06:59 06:59 06:59
Intake Total 950 / 950 220 / 220
Output Total 850 / 850 700 / 700
Balance 100 / 100 -480 / -480
--- NOTE | 2025-01-29 11:07 | W.PN.ID1 ---
Date of Service
Date of Service: January 29, 2025
Today's Communication
Continue ceftriaxone.
Add Tessalon Perles
Assessment / Plan
CAP secondary to haemophilus influenza
Leukocytosis increased due to steroid
ILD (on CT)
CAD
CKD
BPH
Hiatal hernia
Anemia
Recommendations:
Off oxygen this am.
Continue with ceftriaxone while inpatient.
At discharge, can transition to oral cefdinir 300 mg p.o. twice daily, to complete a 14-day course.
Added Tessalon Perles for cough.
Monitor white count and temperature curve.
Chief Complaint
-: Pneumonia
Subjective / Review of Systems
Still coughing
Vital Signs / Physical Exam
Vital Signs
Vital Signs
Temp Pulse Resp BP Pulse Ox
97.9 F 86 20 142/78 90
01/29/25 07:45 01/29/25 07:45 01/29/25 07:45 01/29/25 07:45 01/29/25 08:07
Physical Exam
Constitutional: Chronically Ill
Cardiovascular: Regular Rate and S1/S2
Pulmonary: Coarse; Negative Wheezes or Rales
Gastrointestinal: Soft, Non Tender, Non Distended and Normal Bowel Sounds
Extremities: Negative Edema
Neurological: AO x 3
Objective Data
Lab Data
Lab Results
01/27/25 06:21
01/27/25 06:21
Estimated Creat Clear 35 ml/min 01/27/25 06:21
Lactic Acid 1.7 mmol/L (0.7-2.0) 01/24/25 11:27
Total Bilirubin 0.8 mg/dl (0.2-1.3) D 01/25/25 06:54
AST 28 U/L (17-59) 01/25/25 06:54
ALT 59 U/L (0-50) H 01/25/25 06:54
Alkaline Phosphatase 95 U/L (38-126) 01/25/25 06:54
Most recent labs reviewed.
Micro Results:
01/24/25 08:13 Blood Culture - Final
Blood/Venous No Growth - Final Report
01/24/25 07:14 Blood Culture - Final
Blood/Venous No Growth - Final Report
01/26/25 15:11 Respiratory Culture - Final
Sputum Usual Respiratory Cecily
Gram Stain - Final
01/24/25 17:07 MRSA Screen - Final
Throat/Pharynx No Methicillin Resistant Staphylococcus aureus isolated.
01/24/25 07:21 Respiratory Culture - Final
Sputum Haemophilus influenzae
Gram Stain - Final
01/24/25 09:19 Streptococcus pneumoniae Antigen (M - Final
Urine Negative for Streptococcus pneumoniae antigen.
A negative result does not exclude infection with
Streptococcus pneumoniae. Clinical correlation is
recommended.
01/24/25 08:13 Legionella Urinary Antigen - Final
Urine Negative for Legionella pneumophila Serogroup 1 antigen.
A negative result does not rule out the possiblity of
Legionella infection due to other serogroups or species of
Legionella. Clinical correlation is recommended.
01/24/25 05:41 Influenza Types A & B (VICKY) - Final
Nasal Swab Negative for Influenza A & B, NAAT
Negative results must be combined with clinical observations
and patient history.
Nucleic Acid Amplification test (NAAT)performed on the
[employer] platform.
01/24/25 05:41 Respiratory Syncytial Virus Ag - Final
Nasal Swab Negative for Respiratory Syncytial Virus.
A false negative result may be obtained with a specimen
collected early in the acute phase. If symptoms persist, a
new specimen should be tested.
Imaging:
01/25/2025 CT chest without contrast: CT findings suggesting a background of interstitial fibrosis. Scattered areas of airspace opacity. Minimal bilateral pleural effusions noted. Please see full dictation for additional detail. Film personally
viewed.
Care Review
Plan reviewed with: Physician (Dr Sewell)
--- NOTE | 2025-01-29 14:48 | PN.CDI ---
Addendum entered and electronically signed by Lorenza Sewell MD 01/30/25 06:30:
LISA
Original Note:
CDI
- -
CDI:
Physician Documentation Request
Admit Date: 01/24/25 08:27
[address] Doctor Melodie,
Patient admitted for sepsis.
01/27 Hospitalist PN: 'CKD stage IIIa: - Renal function appears close to baseline'
Laboratory Tests
01/26/25 01/27/25
06:49 06:21
Creatinine 1.5 H 1.8 H
Clarify which of the following accurately represents the patient's renal status:
LISA
Rise in creatinine
Other
Criteria for LISA*
1 Increase in serum creatinine by > or = to 0.3 mg/dL (> or = to 26.5 micromol/L) within 48 hours, OR
2 Increase in serum creatinine to > or = to 1.5 times baseline, which is known or presumed to have occurred within 7 days, OR
3 Urine volume < 0.5 nL/kg/hour for six hours
Use of terms such as suspected, likely, concern for, or probable (associated with a specific diagnosis that is being evaluated, monitored, or treated as if it exists) are acceptable and can be coded in the inpatient setting, when documented at the
time of discharge.
Thank you,
Tana Law RN, BSN
CDI Specialist
Available via [place] text
Please use your independent medical judgment in providing your response.
*Source: Kidney Disease: Improving Global Outcomes (KDIGO) 2012
[2025-01-29 15:27] VITALS: BP 141/91
[2025-01-29] MEDS: XALATAN OPHTHALMIC SOLUTION 1 DROP OPHTH (17:12)
[2025-01-29] MEDS: MUCINEX PO (19:46)
[2025-01-29] MEDS: SEROQUEL 50 MG PO (21:01)
[2025-01-29] MEDS: FLOMAX 0.4 MG PO (21:01)
[2025-01-29 23:07] VITALS: BP 115/66
[2025-01-30] MEDS: TYLENOL 650 MG PO (02:33)
[2025-01-30 07:00] VITALS: BP 142/71
[2025-01-30] MEDS: PULMICORT 0.5 MG INH ×2 (07:06→20:17)
[2025-01-30] MEDS: DUONEB 3 ML INH ×4 (07:06→20:17)
--- NOTE | 2025-01-30 08:18 | W.PN.PUL.V3 ---
Today's Communication / Plan
-
.
Increased FiO2 requirements.
Postnasal drip therapy.
Mucus clearing devices.
Antibiotics per Infectious disease
No change in prednisone.
Check chest x-ray
Assessment
-
84-year-old male with a history of CAD, chronic renal failure, scoliosis, hiatal hernia presented with 5 days of fevers, chills, weakness and cough noted to have pneumonia-pulmonary consulted for shortness of breath/pneumonia 01/26/2025.
Community-acquired pneumonia
Suspected asthma with acute exacerbation
Leukocytosis
Elevated troponin
Elevated LFTs
Mild kisxah-rgmkppkzdo-elhicptxep 10.8
Conditions present prior to admission:
CAD/stent.
Chronic renal failure stage IIIa.
Scoliosis.
Hiatal hernia.
BPH.
Former rrmrou-65-xmxk-year, quit 46 years ago.
Plan
Respiratory decompensation likely due to vplsbnkhe-xqenwxrdl-ezherxfh as well as probable underlying asthma with acute exacerbation-significant wheezing
Supplemental oxygen as needed-currently on 2 L - 96%-now on room air-saturation pending
Nebulizers-DuoNebs 4 times daily and budesonide nebulizers twice daily
Mucinex 1200 mg twice daily
Mucus clearing devices.
Methylprednisolone changed to prednisone 40 mg slow taper-with increased wheezing may need to switch back to IV steroids
Aspiration precautions
Speech therapy evaluation ongoing-correspondence reviewed-dysphasia 5
Bronchoscopy not indicated at this time.
Repeat chest x-ray today
Pulmonary status will need to be reevaluated once pneumonia clears-May be a component of chronic interstitial lung disease
Recommend outpatient pulm evaluation including PFTs
Radiographic kainwq-im-dzj be performed as an outpatient
Cultures reviewed
MRSA screen negative
Urine Legionella and streptococcal antigen negative
Sputum culture 01/24/2025-haemophilus influenza
Repeat sputum culture 01/26/2025-usual respiratory prakash
Empiric antibiotics-doxycycline and ceftriaxone initiated and appropriate-finite course
Infectious disease following-correspondence reviewed
Follow leukocytosis
Trended troponin-negative
Monitor hemoglobin
Transfuse if needed
Monitor blood sugar
Insulin supplementation if needed
DVT prophylaxis-on subcu heparin every 8 hours
GI prophylaxis-on pantoprazole
Nutrition
Early mobilization/physical therapy
They're usually down in [place]-most recently the [facility], prior to that [address] and before that [place]
Spending 2 months this summer in the [facility]
Dr. Mcghee reviewed with his was at the bedside during interview and exam on 01/27/25, 01/28/25 and 01/30/25
Patient would benefit from being discharged on inhalers such as Symbicort 160/4.5 twice daily in addition to Albuterol as needed with prednisone taper and radiographic follow-up to ensure clearing
Outpatient pulmonary follow-up recommended
Diagnostic data:
Chest x-ray 01/24/2025-bilateral patchy opacifications suggesting bilateral pneumonia
CT chest 01/25/2025-CT findings suggest background of interstitial fibrosis, bilateral areas of airspace opacification, minimal bilateral pleural effusions
Subjective Data
-
Date of Service:
Date of Service: January 30, 2025
Chief Complaint: Pulmonary Follow Up and Dyspnea Follow Up
Subjective:
Increased FiO2 requirements, some chest congestion, complains of postnasal drip and nasal congestion, no abdominal pain, increased leg swelling.
Review of Systems
General: Other ( Per HPI)
Objective Data
Data Reviewed
Vital Signs / I&O:
Vital Signs
Temp Pulse Resp BP Pulse Ox
98.0 F 82 18 142/71 96
01/30/25 07:00 01/30/25 07:08 01/30/25 07:08 01/30/25 07:00 01/30/25 07:08
Intake and Output
01/29/25 01/30/25 01/31/25
06:59 06:59 06:59
Intake Total 220 / 220 700 / 700
Output Total 700 / 700 1600 / 1600
Balance -480 / -480 -900 / -900
SaO2: 96
Nasal Cannula flow liters per minute: 2
Physical Exam
General: Respiratory Distress (n) and Comfortable
HEENT: Normocephalic, Anicteric and Moist Mucous Membranes
Cardiovascular: Regular Rhythm
Respiratory: Wheeze (Expiratory-improved), Crackles (Rare basilar), Rhonchi ( expiratory), Non-Labored Respirations, Accessory Resp Muscle Use (n) and Stridor (n)
GI: Non Distended and Non Tender
Neurology: Awake, Alert and No Motor Deficits
Skin: Warm, Good Color, Cyanosis (n) and Jaundice (n)
Labs/Micro/Reports
Microbiology
01/24/25 08:13 Blood/Venous Blood Culture - Final
No Growth - Final Report
01/24/25 07:14 Blood/Venous Blood Culture - Final
No Growth - Final Report
01/26/25 15:11 Sputum Respiratory Culture - Final
Usual Respiratory Prakash
01/26/25 15:11 Sputum Gram Stain - Final
[2025-01-30] MEDS: DELTASONE 40 MG PO (08:27)
[2025-01-30] MEDS: CARAFATE 1 GRAM PO ×2 (08:27→19:38)
[2025-01-30] MEDS: MUCINEX 1200 MG PO ×2 (08:27→19:39)
[2025-01-30] MEDS: HEPARIN 5000 UNITS SC ×2 (08:28→15:44)
[2025-01-30] MEDS: PROTONIX IV 40 MG IV (08:28)
[2025-01-30] MEDS: NSS (PRESERVATIVE FREE) 10 ML IV (08:28)
[2025-01-30] MEDS: ROCEPHIN 1000 MG IV (08:29)
[2025-01-30] MEDS: STERILE WATER FOR INJECTION 10 ML IV (08:29)
[2025-01-30 08:34] LABS: Hematocrit 28.4 % (39.0-52.0); Hemoglobin 9.6 g/dL (13.0-18.0); Mean Corp Hgb Conc. 33.8 g/dL (33.0-37.0); Mean Corpuscular Hgb 29.4 pg (27.0-31.0); Mean Corpuscular Volume 86.9 fL (80.0-94.0); Mean Platelet Volume 9.9 fL (7.4-10.4); Platelet Count 231 10^3/uL (130-400); Red Blood Cell Count 3.27 10^6/uL (4.70-6.10); White Blood Cell Count 17.1 10^3/uL (4.8-10.8)
--- NOTE | 2025-01-30 08:54 | W.PN.HOSP.TC ---
Today's Communication/Plan
-
.
Assessment / Plan
Assessment / Plan
PE:
General: No Apparent Distress, chronically ill looking, elderly, Comfortable and Conversant
HEENT: NormoCephalic, Moist mucous membranes, nasal cannula in place
Respiratory: less rales, I did not hear wheezes. Non Labored Respirations
Cardiac: S1/S2 and Regular Rhythm; No Rub or Gallop
GI: Soft, Non Tender, Non Distended and Normal Bowel Sounds
Musculoskeletal: No Edema, no deformity
Skin: Warm and dry
: NO Oliver
Neuro: Awake, Alert, Nonfocal/grossly intact
Psych: Calm and Intact Judgment/Insight
Sepsis with lactic acidosis / septic shock POA secondary to aspiration pneumonia:
- aspiration is a contributing factor
- s/p IVF . WBC is normal now, afebrile
- no further IVF
- Was on ceftriaxone and doxycycline, now only Rocephin, will d/w ID
- Strep pneumo and Legionella urinary antigens negative, MRSA screen negative
- consulted pulmonary & ID doctors
- Sputum culture is polymicrobial
- Nebulizers as needed
# Suspect underlying ILD
Former zftisf-00-clwn-year, quit 46 years ago.
s/p IV steroid, change to oral prednisone, to start today
c/w nebulizer DuoNeb & Pulmicort
f/w pulmonary recommendations
# Leukocytosis, related to steroid and infection
# Dysphagia
Seen by speech, recommended IDDS-5 with thin liquids
Acute hypoxic respiratory failure:
- Secondary to pneumonia from aspiration
- Continue supplemental oxygen, titrate as able
- Breathing treatments as needed
- Started IV steroids with Solu-Medrol 40 mg every 12 hours
- CT chest showed pneumonia with background pulmonary fibrosis, he does not regularly follow with the [facility] [employer] membership advisors but should do so going forward
# Mild ztdbvk-ogqejfsvaf-ubkpvjykpb
chronic
Elevated troponin: non ischemic myocardial injury due to Sepsis
- Mild, peaked at 0.055, now within normal limits
- Do not suspect acute cardiac ischemia, likely due to respiratory distress in the setting of pneumonia
- History of CAD, not on antiplatelets as an outpatient due to anemia, continue carvedilol
Hiatal hernia:
- Possibly contributing to frequent cough/dysphagia
- Continue pantoprazole and sucralfate
CKD stage IIIa:
- Renal function appears close to baseline
- Will monitor and renally dose all medications
Bladder scan no retention
Abnormal LFTs:
-Very mildly elevated ALT, T. bili now within normal limit
- Will monitor
DVT prophylaxis: Subcu heparin
CODE STATUS: Full code, confirmed with patient and family
Total time spent to see the patient, examine the patient, review data and lab result, discuss treatment plan with patient, pulmonary, nursing staff around 55 minutes
Anticipated Discharge: > 48 hours
Subjective/Interval History
-
Date of Service: January 30, 2025
Same cough
No chest pain
Objective Data
-
Labs:
Laboratory Results
01/30/25
07:54
WBC 17.1 H
Hgb 9.6 L
Hct 28.4 L
Plt Count 231
Sodium Pending
Potassium Pending
Chloride Pending
Carbon Dioxide Pending
BUN Pending
Creatinine Pending
Glucose Pending
Calcium Pending
Vital Signs:
Vital Signs
Temp Pulse Resp BP Pulse Ox
98.0 F 82 18 142/71 96
01/30/25 07:00 01/30/25 07:08 01/30/25 07:08 01/30/25 07:00 01/30/25 08:18
I&O
01/29/25 01/30/25 01/31/25
06:59 06:59 06:59
Intake Total 220 / 220 700 / 700
Output Total 700 / 700 1600 / 1600
Balance -480 / -480 -900 / -900
[2025-01-30 08:57] LABS: Blood Urea Nitrogen 32 mg/dl (9-20); Calcium 8.4 mg/dl (8.4-10.2); Carbon Dioxide 27 mmol/L (22-30); Chloride 111 mmol/L (98-107); Estimated Creatinine Clearance 42 ml/min; Glucose 87 mg/dl (70-99); Potassium 4.2 mmol/L (3.5-5.1); Sodium 142 mmol/L (135-145); eGFR 45.91
--- NOTE | 2025-01-30 11:11 | CM ---
CM reviewed chart, patient off floor for xray, see bedside. Patient will require script for outpatient PT/OT upon discharge. Per ID- patient transition to oral cefdinir upon discharge. CM will continue to follow for all discharge planning needs.
Plan; home with , will need script for PT/OT upon d/c
--- NOTE | 2025-01-30 11:33 | W.PN.ID1 ---
Date of Service
Date of Service: January 30, 2025
Today's Communication
Continue ceftriaxone.
Assessment / Plan
CAP secondary to haemophilus influenza
Leukocytosis increased due to steroid
ILD (on CT)
CAD
CKD
BPH
Hiatal hernia
Anemia
Recommendations:
Today CXR with interval improvement.
Slow progress compounded by underlying pulm fibrosis.
Continue with ceftriaxone while inpatient.
At discharge, can transition to oral cefdinir 300 mg p.o. twice daily, to complete a 14-day course.
Consider codeine for cough.
Chief Complaint
-: Pneumonia
Subjective / Review of Systems
Sitting up in chair. He reports overall feeling better.
Has intermittent coughing fits also improving.
On dysphagia diet. No cough while eating.
No diarrhea.
Vital Signs / Physical Exam
Vital Signs
Vital Signs
Temp Pulse Resp BP Pulse Ox
98.0 F 82 18 142/71 90
01/30/25 07:00 01/30/25 07:08 01/30/25 11:27 01/30/25 07:00 01/30/25 11:27
Physical Exam
Constitutional: Comfortable
Cardiovascular: Regular Rate and S1/S2
Pulmonary: Rales (coarse crackles bilaterally)
Gastrointestinal: Soft, Non Tender, Non Distended and Normal Bowel Sounds
Extremities: Negative Edema
Neurological: AO x 3
Objective Data
Lab Data
Lab Results
01/30/25 07:54
01/30/25 07:54
Estimated Creat Clear 42 ml/min 01/30/25 07:54
Lactic Acid 1.7 mmol/L (0.7-2.0) 01/24/25 11:27
Total Bilirubin 0.8 mg/dl (0.2-1.3) D 01/25/25 06:54
AST 28 U/L (17-59) 01/25/25 06:54
ALT 59 U/L (0-50) H 01/25/25 06:54
Alkaline Phosphatase 95 U/L (38-126) 01/25/25 06:54
Most recent labs reviewed.
Micro Results:
01/24/25 08:13 Blood Culture - Final
Blood/Venous No Growth - Final Report
01/24/25 07:14 Blood Culture - Final
Blood/Venous No Growth - Final Report
01/26/25 15:11 Respiratory Culture - Final
Sputum Usual Respiratory Cecily
Gram Stain - Final
01/24/25 17:07 MRSA Screen - Final
Throat/Pharynx No Methicillin Resistant Staphylococcus aureus isolated.
01/24/25 07:21 Respiratory Culture - Final
Sputum Haemophilus influenzae
Gram Stain - Final
01/24/25 09:19 Streptococcus pneumoniae Antigen (M - Final
Urine Negative for Streptococcus pneumoniae antigen.
A negative result does not exclude infection with
Streptococcus pneumoniae. Clinical correlation is
recommended.
01/24/25 08:13 Legionella Urinary Antigen - Final
Urine Negative for Legionella pneumophila Serogroup 1 antigen.
A negative result does not rule out the possiblity of
Legionella infection due to other serogroups or species of
Legionella. Clinical correlation is recommended.
01/24/25 05:41 Influenza Types A & B (VICKY) - Final
Nasal Swab Negative for Influenza A & B, NAAT
Negative results must be combined with clinical observations
and patient history.
Nucleic Acid Amplification test (NAAT)performed on the
[employer] platform.
01/24/25 05:41 Respiratory Syncytial Virus Ag - Final
Nasal Swab Negative for Respiratory Syncytial Virus.
A false negative result may be obtained with a specimen
collected early in the acute phase. If symptoms persist, a
new specimen should be tested.
Imaging:
01/25/2025 CT chest without contrast: CT findings suggesting a background of interstitial fibrosis. Scattered areas of airspace opacity. Minimal bilateral pleural effusions noted. Please see full dictation for additional detail. Film personally
viewed.
01/30/25 CXR: Slight interval improvement in bilateral parenchymal opacities, suggesting improving pneumonia. There is likely a background of interstitial fibrosis.
Care Review
Plan reviewed with: Physician (Dr. Sewell)
[2025-01-30] MEDS: ULTRAM 50 MG PO (14:12)
[2025-01-30 15:00] VITALS: BP 115/56
[2025-01-30 15:23] VITALS: PULSE 90; O2SAT 94
[2025-01-30] MEDS: OCEAN, SALINE MIST 2 SPRAYS NASAL ×2 (17:17→21:04)
[2025-01-30] MEDS: XALATAN OPHTHALMIC SOLUTION 1 DROP OPHTH (17:17)
[2025-01-30] MEDS: SEROQUEL 50 MG PO (21:04)
[2025-01-30] MEDS: FLOMAX 0.4 MG PO (21:04)
[2025-01-30 23:18] VITALS: BP 121/56
[2025-01-31] MEDS: HEPARIN 5000 UNITS SC ×3 (00:39→17:02)
[2025-01-31] MEDS: TYLENOL 650 MG PO (02:00)
[2025-01-31] MEDS: ULTRAM 50 MG PO ×2 (02:17→13:19)
[2025-01-31 07:00] VITALS: BP 118/77
[2025-01-31] MEDS: DUONEB 3 ML INH ×4 (07:18→19:52)
[2025-01-31] MEDS: PULMICORT 0.5 MG INH ×2 (07:18→19:52)
[2025-01-31] MEDS: CARAFATE 1 GRAM PO ×2 (08:32→20:44)
[2025-01-31] MEDS: DELTASONE 40 MG PO (08:32)
[2025-01-31] MEDS: MUCINEX 1200 MG PO ×2 (08:32→20:40)
[2025-01-31] MEDS: OCEAN, SALINE MIST 2 SPRAYS NASAL ×4 (08:33→20:40)
[2025-01-31] MEDS: NSS (PRESERVATIVE FREE) 10 ML IV (08:34)
[2025-01-31] MEDS: PROTONIX IV 40 MG IV (08:35)
[2025-01-31] MEDS: STERILE WATER FOR INJECTION 10 ML IV (08:35)
[2025-01-31] MEDS: ROCEPHIN 1000 MG IV (08:35)
--- NOTE | 2025-01-31 09:13 | W.PN.HOSP.TC ---
Today's Communication/Plan
-
IV Rocephin
Nebs
Vest therapy
Assessment / Plan
Assessment / Plan
PE:
General: No Apparent Distress, chronically ill looking, elderly, Comfortable and Conversant
HEENT: NormoCephalic, Moist mucous membranes, nasal cannula in place
Respiratory: less rales, I did not hear wheezes. Non Labored Respirations
Cardiac: S1/S2 and Regular Rhythm; No Rub or Gallop
GI: Soft, Non Tender, Non Distended and Normal Bowel Sounds
Musculoskeletal: No Edema, no deformity
Skin: Warm and dry
: NO Oliver
Neuro: Awake, Alert, Nonfocal/grossly intact
Psych: Calm and Intact Judgment/Insight
Sepsis with lactic acidosis / septic shock POA secondary to aspiration pneumonia:
- aspiration is a contributing factor
- s/p IVF . WBC is normal now, afebrile
- no further IVF
- Was on ceftriaxone and doxycycline, now only Rocephin, Repeat cXR no worsening.
Started on Vest therapy.
- Strep pneumo and Legionella urinary antigens negative, MRSA screen negative
- consulted pulmonary & ID doctors
- Sputum culture is polymicrobial seem respiratory prakash.
- Nebulizers as needed
# Suspect underlying ILD
Former [id number]-[id number]-year, quit 46 years ago.
s/p IV steroid, change to oral prednisone, to start today
c/w nebulizer DuoNeb & Pulmicort
f/w pulmonary recommendations
# Leukocytosis, related to steroid and infection
# Dysphagia
Seen by speech, recommended IDDS-5 with thin liquids
Acute hypoxic respiratory failure:
- Secondary to pneumonia from aspiration
- Continue supplemental oxygen, titrate as able
- Breathing treatments as needed
- Started IV steroids with Solu-Medrol 40 mg every 12 hours
- CT chest showed pneumonia with background pulmonary fibrosis, he does not regularly follow with the fine patcher but should do so going forward
# Mild prthus-fwhksmvndk-ybysckapuj
chronic
Elevated troponin: non ischemic myocardial injury due to Sepsis
- Mild, peaked at 0.055, now within normal limits
- Do not suspect acute cardiac ischemia, likely due to respiratory distress in the setting of pneumonia
- History of CAD, not on antiplatelets as an outpatient due to anemia, continue carvedilol
Hiatal hernia:
- Possibly contributing to frequent cough/dysphagia
- Continue pantoprazole and sucralfate
CKD stage IIIa:
- Renal function appears close to baseline
- Will monitor and renally dose all medications
Bladder scan no retention
Abnormal LFTs:
-Very mildly elevated ALT, T. bili now within normal limit
- Will monitor
DVT prophylaxis: Subcu heparin
CODE STATUS: Full code, confirmed with patient and family
Total time spent to see the patient, examine the patient, review data and lab result, discuss treatment plan with patient, pulmonary, nursing staff around 55 minutes
Anticipated Discharge: 24 - 48 hours
Subjective/Interval History
-
Date of Service: January 31, 2025
He likes Vest therapy
No chest pain, no sob
Objective Data
-
Vital Signs:
Vital Signs
Temp Pulse Resp BP Pulse Ox
98.0 F 81 18 118/77 93
01/31/25 07:00 01/31/25 07:23 01/31/25 07:23 01/31/25 07:00 01/31/25 07:23
I&O
01/30/25 01/31/25 02/01/25
06:59 06:59 06:59
Intake Total 700 / 700 480 / 480
Output Total 1600 / 1600 775 / 775
Balance -900 / -900 480 / 480 -775 / -775
--- NOTE | 2025-01-31 10:51 | W.PN.ID1 ---
Date of Service
Date of Service: January 31, 2025
Today's Communication
Continue ceftriaxone.
Assessment / Plan
CAP secondary to haemophilus influenza
Leukocytosis increased due to steroid
ILD (on CT)
CAD
CKD
BPH
Hiatal hernia
Anemia
Recommendations:
Reepat CXR with interval improvement.
Slow progress compounded by underlying pulm fibrosis.
Continue with ceftriaxone while inpatient.
At discharge, can transition to oral cefdinir 300 mg p.o. twice daily, to complete a 14-day course.
Chief Complaint
-: Pneumonia
Subjective / Review of Systems
Pulm vest helps cough.
Vital Signs / Physical Exam
Vital Signs
Vital Signs
Temp Pulse Resp BP Pulse Ox
98.0 F 81 18 118/77 93
01/31/25 07:00 01/31/25 07:23 01/31/25 07:23 01/31/25 07:00 01/31/25 07:23
Physical Exam
Constitutional: Comfortable
Cardiovascular: Regular Rate and S1/S2
Pulmonary: Rales (coarse crackles bilaterally)
Gastrointestinal: Soft, Non Tender, Non Distended and Normal Bowel Sounds
Extremities: Negative Edema
Neurological: AO x 3
Objective Data
Lab Data
Lab Results
01/30/25 07:54
01/30/25 07:54
Estimated Creat Clear 42 ml/min 01/30/25 07:54
Lactic Acid 1.7 mmol/L (0.7-2.0) 01/24/25 11:27
Total Bilirubin 0.8 mg/dl (0.2-1.3) D 01/25/25 06:54
AST 28 U/L (17-59) 01/25/25 06:54
ALT 59 U/L (0-50) H 01/25/25 06:54
Alkaline Phosphatase 95 U/L (38-126) 01/25/25 06:54
Most recent labs reviewed.
Micro Results:
01/24/25 08:13 Blood Culture - Final
Blood/Venous No Growth - Final Report
01/24/25 07:14 Blood Culture - Final
Blood/Venous No Growth - Final Report
01/26/25 15:11 Respiratory Culture - Final
Sputum Usual Respiratory Cecily
Gram Stain - Final
01/24/25 17:07 MRSA Screen - Final
Throat/Pharynx No Methicillin Resistant Staphylococcus aureus isolated.
01/24/25 07:21 Respiratory Culture - Final
Sputum Haemophilus influenzae
Gram Stain - Final
01/24/25 09:19 Streptococcus pneumoniae Antigen (M - Final
Urine Negative for Streptococcus pneumoniae antigen.
A negative result does not exclude infection with
Streptococcus pneumoniae. Clinical correlation is
recommended.
01/24/25 08:13 Legionella Urinary Antigen - Final
Urine Negative for Legionella pneumophila Serogroup 1 antigen.
A negative result does not rule out the possiblity of
Legionella infection due to other serogroups or species of
Legionella. Clinical correlation is recommended.
01/24/25 05:41 Influenza Types A & B (VICKY) - Final
Nasal Swab Negative for Influenza A & B, NAAT
Negative results must be combined with clinical observations
and patient history.
Nucleic Acid Amplification test (NAAT)performed on the
[employer] platform.
01/24/25 05:41 Respiratory Syncytial Virus Ag - Final
Nasal Swab Negative for Respiratory Syncytial Virus.
A false negative result may be obtained with a specimen
collected early in the acute phase. If symptoms persist, a
new specimen should be tested.
Imaging:
01/25/2025 CT chest without contrast: CT findings suggesting a background of interstitial fibrosis. Scattered areas of airspace opacity. Minimal bilateral pleural effusions noted. Please see full dictation for additional detail. Film personally
viewed.
01/30/25 CXR: Slight interval improvement in bilateral parenchymal opacities, suggesting improving pneumonia. There is likely a background of interstitial fibrosis.
[2025-01-31 15:42] VITALS: BP 137/68
--- NOTE | 2025-01-31 16:10 | W.PN.PUL3 ---
Today's Communication / Plan
-
Continue supplemental O2, with goal SpO2 >90-94%
Check ambulatory pulse oximetry prior to discharge
Outpatient PFTs and repeat imaging
Suspect he has component of ILD
Mucus clearing devices.
Antibiotics per ID
Continue slow prednisone taper
Encourage incentive spirometer
Pulmonary service will continue to follow along
Assessment
-
84-year-old male with a history of CAD, chronic renal failure, scoliosis, hiatal hernia presented with 5 days of fevers, chills, weakness and cough noted to have pneumonia-pulmonary consulted for shortness of breath/pneumonia 01/26/2025.
Community-acquired pneumonia involving right upper lobe, posteromedial right lower lobe + lingula
Interstitial fibrosis
Suspected asthma with acute exacerbation
Leukocytosis
Elevated troponin
Mildly elevated ALT
Mild anemia
Conditions present prior to admission:
CAD/stent.
Chronic renal failure stage IIIa.
Scoliosis.
Hiatal hernia.
BPH.
Former [id number]-year, quit 46 years ago.
Plan
Respiratory decompensation likely due to palvlllkj-zemeaulvx-sgysurqn in the setting of underlying interstitial fibrosis as well as probable underlying asthma with acute exacerbation
Continue with supplemental oxygen - currently on 3 L - wean down as tolerated while keeping SpO2 >90�94%
Nebulizers-DuoNebs 4 times daily and budesonide nebulizers twice daily
Mucinex 1200 mg twice daily
Mucus clearing devices.
Methylprednisolone changed to prednisone 40 mg slow taper- would recommend a slow taper reducing by 10mg every 4th day until off
Aspiration precautions
Diet as per [employer]INE OPERATOR
Bronchoscopy not indicated at this time.
CXR from 01/30 shows slight improvement in his pneumonia
Pulmonary status will need to be reevaluated once pneumonia clears-suspect a component of chronic interstitial lung disease
Recommend outpatient pulm evaluation including PFTs
Radiographic jjrtwn-up-ftn be performed as an outpatient
Cultures reviewed
MRSA screen negative
Urine Legionella and streptococcal antigen negative
Sputum culture 01/24/2025-haemophilus influenza
Repeat sputum culture 01/26/2025-usual respiratory prakash
Empiric antibiotics-doxycycline and ceftriaxone initiated and appropriate-finite course
Infectious disease following-correspondence reviewed
Follow leukocytosis
Troponin peaked at 0.055 � no longer need to continue trending at this time
Monitor hemoglobin
Transfuse if needed to keep Hb >7 g/dL
Monitor blood sugar with goal BG >100 and <180
Insulin supplementation if needed
DVT prophylaxis-on subcu heparin every 8 hours
GI prophylaxis-on pantoprazole
Nutrition
Early mobilization/physical therapy
They're usually down in [place]-most recently the [facility], prior to that [place] and before that [place]
Spending 2 months this summer in the [facility]
Dr. Mcghee reviewed with his was at the bedside during interview and exam on 01/27/25, 01/28/25 and 01/30/25
Patient would benefit from being discharged on inhalers such as Symbicort 160/4.5 twice daily in addition to Albuterol as needed with prednisone taper and radiographic follow-up to ensure clearing
Outpatient pulmonary follow-up recommended
Pulmonary service will continue to follow along
Diagnostic data:
Chest x-ray 01/24/2025-bilateral patchy opacifications suggesting bilateral pneumonia
CT chest 01/25/2025-CT findings suggest background of interstitial fibrosis, bilateral areas of airspace opacification, minimal bilateral pleural effusions
Total time spent today was 38 minutes for this encounter. Time includes reviewing laboratory test/imaging results, reviewing pertinent medical records, obtaining and reviewing medical history, performing an appropriate exam, ordering medications,
tests and procedures. Time also includes documentation of this encounter, coordinating patient care and communicating with other healthcare professionals. Total time does not include separately billed tests performed on this date of service.
Subjective Data
-
Date of Service:
Date of Service: January 31, 2025
Chief Complaint: Pulmonary Follow Up and Dyspnea Follow Up
Subjective:
Patient was seen and evaluated today at bedside. On 3 L/min nasal cannula, says he feels better. Still has a mild cough. He does admit he sometimes chokes on liquids. He denies chest pain, NARANJO, nausea, fevers or chills.
Review of Systems
General: Other (Negative unless mentioned above)
Objective Data
Data Reviewed
Vital Signs / I&O / Oxygen:
Vital Signs
Temp Pulse Resp BP Pulse Ox
98.0 F 81 18 118/77 93
01/31/25 07:00 01/31/25 07:23 01/31/25 07:23 01/31/25 07:00 01/31/25 07:23
Intake and Output
01/30/25 01/31/25 02/01/25
06:59 06:59 06:59
Intake Total 700 / 700 480 / 480
Output Total 1600 / 1600 775 / 775
Balance -900 / -900 480 / 480 -775 / -775
SaO2 93
Nasal Cannula flow liters per 3
minute
Physical Exam
General: Respiratory Distress (n), Comfortable, Chills (n) and Sweats (n)
HEENT: Normocephalic, Anicteric and Moist Mucous Membranes
Cardiovascular: S1-S2 and Peripheral Edema (+1 lower extremity edema bilaterally)
Respiratory: Wheeze (n), Crackles (Rare basilar), Rhonchi (Bilaterally (worst at left base)), Non-Labored Respirations, Accessory Resp Muscle Use (n), Stridor (n) and Other (Inspiratory squeaks heard at the left base)
GI: Soft, Non Distended, Non Tender and Normal Bowel Sounds
Neurology: Awake, Alert and Tremors (n)
Skin: Warm, Dry, Cyanosis (n) and Jaundice (n)
Labs/Micro/Reports
Lab Data
01/30/25 07:54
01/30/25 07:54
Microbiology
01/24/25 08:13 Blood/Venous Blood Culture - Final
No Growth - Final Report
01/24/25 07:14 Blood/Venous Blood Culture - Final
No Growth - Final Report
01/26/25 15:11 Sputum Respiratory Culture - Final
Usual Respiratory Prakash
01/26/25 15:11 Sputum Gram Stain - Final
[2025-01-31] MEDS: XALATAN OPHTHALMIC SOLUTION 1 DROP OPHTH (17:02)
[2025-01-31] MEDS: FLOMAX 0.4 MG PO (20:40)
[2025-01-31] MEDS: SEROQUEL 50 MG PO (20:44)
[2025-01-31 23:25] VITALS: BP 128/64
[2025-02-01] MEDS: HEPARIN 5000 UNITS SC ×3 (00:12→15:17)
[2025-02-01] MEDS: DUONEB 3 ML INH ×5 (00:49→19:51)
[2025-02-01 07:00] VITALS: BP 128/66
[2025-02-01] MEDS: PULMICORT 0.5 MG INH ×2 (07:31→19:51)
[2025-02-01] MEDS: CARAFATE 1 GRAM PO ×2 (08:35→21:04)
[2025-02-01] MEDS: DELTASONE 40 MG PO (08:36)
[2025-02-01] MEDS: MUCINEX 1200 MG PO ×2 (08:37→21:04)
[2025-02-01] MEDS: NSS (PRESERVATIVE FREE) 10 ML IV (08:37)
[2025-02-01] MEDS: ROCEPHIN 1000 MG IV (08:37)
[2025-02-01] MEDS: STERILE WATER FOR INJECTION 10 ML IV (08:38)
[2025-02-01] MEDS: PROTONIX IV 40 MG IV (08:38)
[2025-02-01] MEDS: OCEAN, SALINE MIST 2 SPRAYS NASAL ×4 (08:38→21:04)
--- NOTE | 2025-02-01 10:04 | W.PN.HOSP.TC ---
Today's Communication/Plan
-
IV Rocephin
Oral prednisone
Breathing [place]
Vest therapy
Assessment / Plan
Assessment / Plan
PE:
General: No Apparent Distress, chronically ill looking, elderly, Comfortable and Conversant
HEENT: NormoCephalic, Moist mucous membranes, nasal cannula in place
Respiratory: Same rales. Non Labored Respirations
Cardiac: S1/S2 and Regular Rhythm; No Rub or Gallop
GI: Soft, Non Tender, Non Distended and Normal Bowel Sounds
Musculoskeletal: No Edema, no deformity
Skin: Warm and dry
: NO Oliver
Neuro: Awake, Alert, Nonfocal/grossly intact
Psych: Calm and Intact Judgment/Insight
Sepsis with lactic acidosis / septic shock POA secondary to aspiration pneumonia:
- aspiration is a contributing factor
- s/p IVF . WBC is normal now, afebrile
- no further IVF
- Was on ceftriaxone and doxycycline, now only Rocephin, Repeat CXR no worsening.
Started on Vest therapy.
- Strep pneumo and Legionella urinary antigens negative, MRSA screen negative
- consulted pulmonary & ID doctors. Upon dc:can transition to oral cefdinir 300 mg p.o. twice daily, to complete a 14-day course.
- Sputum culture is polymicrobial seem respiratory prakash.
- Nebulizers as needed
# Suspect underlying ILD
Former [id number]-year, quit 46 years ago.
s/p IV steroid, change to oral prednisone, to start today
c/w nebulizer DuoNeb & Pulmicort
f/w pulmonary recommendations
# Leukocytosis, related to steroid and infection
# Dysphagia
Seen by speech, recommended IDDS-5 with thin liquids
Acute hypoxic respiratory failure:
- Secondary to pneumonia from aspiration
- Continue supplemental oxygen, titrate as able
- Breathing treatments as needed
- Started IV steroids with Solu-Medrol 40 mg every 12 hours
- CT chest showed pneumonia with background pulmonary fibrosis, he does not regularly follow with the yarn winder but should do so going forward
# Mild pjzmwj-tcjsxsleix-gnieuvseyu
chronic
Elevated troponin: non ischemic myocardial injury due to Sepsis
- Mild, peaked at 0.055, now within normal limits
- Do not suspect acute cardiac ischemia, likely due to respiratory distress in the setting of pneumonia
- History of CAD, not on antiplatelets as an outpatient due to anemia, continue carvedilol
Hiatal hernia:
- Possibly contributing to frequent cough/dysphagia
- Continue pantoprazole and sucralfate
CKD stage IIIa:
- Renal function appears close to baseline
- Will monitor and renally dose all medications
Bladder scan no retention
Abnormal LFTs:
-Very mildly elevated ALT, T. bili now within normal limit
- Will monitor
DVT prophylaxis: Subcu heparin
CODE STATUS: Full code, confirmed with patient and family
Total time spent to see the patient, examine the patient, review data and lab result, discuss treatment plan with patient, , pulmonary, nursing staff around 55 minutes
Anticipated Discharge: > 48 hours
Subjective/Interval History
-
Date of Service: February 01, 2025
He reports less sob/ chest congestion
Objective Data
-
Vital Signs:
Vital Signs
Temp Pulse Resp BP Pulse Ox
98.2 F 87 18 128/66 97
02/01/25 07:00 02/01/25 07:37 02/01/25 07:37 02/01/25 07:00 02/01/25 07:37
I&O
01/31/25 02/01/25 02/02/25
06:59 06:59 06:59
Intake Total 480 / 480 720 / 720
Output Total 1925 / 1925
Balance 480 / 480 -1205 / -1205
--- NOTE | 2025-02-01 12:15 | W.PN.ID1 ---
Date of Service
Date of Service: February 01, 2025
Today's Communication
Continue airway clearance.
Continue ceftriaxone.
Assessment / Plan
CAP secondary to haemophilus influenza
Leukocytosis increased due to steroid
ILD (on CT)
CAD
CKD
BPH
Hiatal hernia
Anemia
Recommendations:
Repeat CXR with interval improvement.
Slowly improving.
Continue airway clearance
Continue with ceftriaxone while inpatient.
At discharge, can transition to oral cefdinir 300 mg p.o. twice daily, to complete a 14-day course.
Chief Complaint
-: Pneumonia
Subjective / Review of Systems
Continues to feel improved.
Vital Signs / Physical Exam
Vital Signs
Vital Signs
Temp Pulse Resp BP Pulse Ox
98.2 F 86 16 128/66 97
02/01/25 07:00 02/01/25 11:30 02/01/25 11:30 02/01/25 07:00 02/01/25 08:30
Physical Exam
Constitutional: No Acute Distress and Comfortable
Cardiovascular: Regular Rate and S1/S2
Pulmonary: Rales (milder coarse crackles bilaterally)
Gastrointestinal: Soft, Non Tender, Non Distended and Normal Bowel Sounds
Extremities: Negative Edema
Neurological: AO x 3
Objective Data
Lab Data
Lab Results
01/30/25 07:54
01/30/25 07:54
Estimated Creat Clear 42 ml/min 01/30/25 07:54
Lactic Acid 1.7 mmol/L (0.7-2.0) 01/24/25 11:27
Total Bilirubin 0.8 mg/dl (0.2-1.3) D 01/25/25 06:54
AST 28 U/L (17-59) 01/25/25 06:54
ALT 59 U/L (0-50) H 01/25/25 06:54
Alkaline Phosphatase 95 U/L (38-126) 01/25/25 06:54
Most recent labs reviewed.
Micro Results:
01/24/25 08:13 Blood Culture - Final
Blood/Venous No Growth - Final Report
01/24/25 07:14 Blood Culture - Final
Blood/Venous No Growth - Final Report
01/26/25 15:11 Respiratory Culture - Final
Sputum Usual Respiratory Cecily
Gram Stain - Final
01/24/25 17:07 MRSA Screen - Final
Throat/Pharynx No Methicillin Resistant Staphylococcus aureus isolated.
01/24/25 07:21 Respiratory Culture - Final
Sputum Haemophilus influenzae
Gram Stain - Final
01/24/25 09:19 Streptococcus pneumoniae Antigen (M - Final
Urine Negative for Streptococcus pneumoniae antigen.
A negative result does not exclude infection with
Streptococcus pneumoniae. Clinical correlation is
recommended.
01/24/25 08:13 Legionella Urinary Antigen - Final
Urine Negative for Legionella pneumophila Serogroup 1 antigen.
A negative result does not rule out the possiblity of
Legionella infection due to other serogroups or species of
Legionella. Clinical correlation is recommended.
01/24/25 05:41 Influenza Types A & B (VICKY) - Final
Nasal Swab Negative for Influenza A & B, NAAT
Negative results must be combined with clinical observations
and patient history.
Nucleic Acid Amplification test (NAAT)performed on the
[employer] platform.
01/24/25 05:41 Respiratory Syncytial Virus Ag - Final
Nasal Swab Negative for Respiratory Syncytial Virus.
A false negative result may be obtained with a specimen
collected early in the acute phase. If symptoms persist, a
new specimen should be tested.
Imaging:
01/25/2025 CT chest without contrast: CT findings suggesting a background of interstitial fibrosis. Scattered areas of airspace opacity. Minimal bilateral pleural effusions noted. Please see full dictation for additional detail. Film personally
viewed.
01/30/25 CXR: Slight interval improvement in bilateral parenchymal opacities, suggesting improving pneumonia. There is likely a background of interstitial fibrosis.
[2025-02-01 15:00] VITALS: BP 122/67
--- NOTE | 2025-02-01 15:43 | W.PN.PUL3 ---
Today's Communication / Plan
-
Goal SpO2 >90-94%
Check ambulatory pulse oximetry prior to discharge
Outpatient PFTs and repeat imaging
Suspect he has component of ILD
Mucus clearing devices
Antibiotics per ID
Continue slow prednisone taper
Encourage incentive spirometer
Pulmonary service will continue to follow along
Assessment
-
84-year-old male with a history of CAD, chronic renal failure, scoliosis, hiatal hernia presented with 5 days of fevers, chills, weakness and cough noted to have pneumonia-pulmonary consulted for shortness of breath/pneumonia 01/26/2025.
Community-acquired pneumonia involving right upper lobe, posteromedial right lower lobe + lingula
Interstitial fibrosis
Suspected asthma with acute exacerbation
Leukocytosis
Elevated troponin
Mildly elevated ALT
Mild anemia
Conditions present prior to admission:
CAD/stent.
Chronic renal failure stage IIIa.
Scoliosis.
Hiatal hernia.
BPH.
Former cldogp-35-ppgy-year, quit 46 years ago.
Plan
Respiratory decompensation likely due to sccyntbag-lokbvuzuq-muvatwtw in the setting of underlying interstitial fibrosis as well as probable underlying asthma with acute exacerbation
Continue with supplemental oxygen - currently on room air from 3L/min on 01/31 - wean down as tolerated while keeping SpO2 >90�94%
Nebulizers-DuoNebs 4 times daily and budesonide nebulizers twice daily
Mucinex 1200 mg twice daily
Mucus clearing devices.
Methylprednisolone changed to prednisone 40 mg slow taper- recommend slow taper reducing by 10mg every 4th day until off
Aspiration precautions
Diet as per ACCOUNT ENGINEER
Bronchoscopy not indicated at this time.
CXR from 01/30 shows slight improvement in his pneumonia
Pulmonary status will need to be reevaluated once pneumonia clears-suspect a component of chronic interstitial lung disease
Recommend outpatient pulm evaluation including PFTs
Radiographic [id number]-mog be performed as an outpatient
Cultures reviewed
MRSA screen negative
Urine Legionella and streptococcal antigen negative
Sputum culture 01/24/2025-haemophilus influenza
Repeat sputum culture 01/26/2025-usual respiratory prakash
Empiric antibiotics- s/p doxycycline (01/25 - 01/28/2025), continue with ceftriaxone -finite course
Infectious disease following-correspondence reviewed
Follow leukocytosis
Troponin peaked at 0.055 � no longer need to continue trending at this time
Monitor hemoglobin
Transfuse if needed to keep Hb >7 g/dL
Monitor blood sugar with goal BG >100 and <180
Insulin supplementation if needed
DVT prophylaxis-on subcu heparin every 8 hours
GI prophylaxis-on pantoprazole
Nutrition
Early mobilization/physical therapy
They're usually down in [place]-most recently the [facility], prior to that [place] and before that [place]
Spending 2 months this summer in the [facility]
Dr. Mcghee reviewed with his was at the bedside during interview and exam on 01/27/25, 01/28/25 and 01/30/25
Patient would benefit from being discharged on inhalers such as Symbicort 160/4.5 twice daily in addition to Albuterol as needed with prednisone taper and radiographic follow-up to ensure clearing
Outpatient pulmonary follow-up recommended
Pulmonary service will continue to follow along
Diagnostic data:
Chest x-ray 01/24/2025-bilateral patchy opacifications suggesting bilateral pneumonia
CT chest 01/25/2025-CT findings suggest background of interstitial fibrosis, bilateral areas of airspace opacification, minimal bilateral pleural effusions
Total time spent today was 41 minutes for this encounter. Time includes reviewing laboratory test/imaging results, reviewing pertinent medical records, obtaining and reviewing medical history, performing an appropriate exam, ordering medications,
tests and procedures. Time also includes documentation of this encounter, coordinating patient care and communicating with other healthcare professionals. Total time does not include separately billed tests performed on this date of service.
Subjective Data
-
Date of Service:
Date of Service: February 01, 2025
Chief Complaint: Pulmonary Follow Up and Dyspnea Follow Up
Subjective:
Patient was seen and evaluated today at bedside. Still coughing. On room air breathing comfortably. Endorses reduced hearing in his right ear. He overall feels better with his breathing. Denies chest pain, NARANJO, nausea, fevers or chills.
Review of Systems
General: Other (Negative unless mentioned above)
Objective Data
Data Reviewed
Vital Signs / I&O / Oxygen:
Vital Signs
Temp Pulse Resp BP Pulse Ox
98.2 F 87 18 128/66 97
02/01/25 07:00 02/01/25 07:37 02/01/25 07:37 02/01/25 07:00 02/01/25 07:37
Intake and Output
01/31/25 02/01/25 02/02/25
06:59 06:59 06:59
Intake Total 480 / 480 720 / 720
Output Total 1925 / 1925
Balance 480 / 480 -1205 / -1205
SaO2 97
Nasal Cannula flow liters per 3
minute
Physical Exam
General: Respiratory Distress (n), Comfortable, Chills (n) and Sweats (n)
HEENT: Normocephalic, Anicteric and Moist Mucous Membranes
Cardiovascular: S1-S2, Rub (negative) and Peripheral Edema (negative)
Respiratory: Wheeze ([place] upon expiration bilaterally), Crackles (Bilaterally), Rhonchi (negative), Non-Labored Respirations, Accessory Resp Muscle Use (n) and Stridor (n)
GI: Soft, Non Distended, Non Tender and Normal Bowel Sounds
Neurology: Awake, Alert and Tremors (n)
Skin: Warm, Dry, Cyanosis (n) and Jaundice (n)
Labs/Micro/Reports
Lab Data
01/30/25 07:54
01/30/25 07:54
Microbiology
01/24/25 08:13 Blood/Venous Blood Culture - Final
No Growth - Final Report
01/24/25 07:14 Blood/Venous Blood Culture - Final
No Growth - Final Report
[2025-02-01] MEDS: XALATAN OPHTHALMIC SOLUTION 1 DROP OPHTH (17:13)
[2025-02-01] MEDS: FLOMAX 0.4 MG PO (21:04)
[2025-02-01] MEDS: SEROQUEL 50 MG PO (21:04)
[2025-02-01 23:53] VITALS: BP 126/71
[2025-02-02] MEDS: HEPARIN 5000 UNITS SC ×3 (00:26→17:54)
[2025-02-02] MEDS: ULTRAM 50 MG PO ×2 (05:09→10:40)
[2025-02-02 06:29] VITALS: BMI 24.6
[2025-02-02 07:00] VITALS: BP 120/66
[2025-02-02] MEDS: DUONEB 3 ML INH ×4 (07:37→19:59)
[2025-02-02] MEDS: PULMICORT 0.5 MG INH ×2 (07:37→19:59)
[2025-02-02] MEDS: MUCINEX 1200 MG PO (08:08)
[2025-02-02] MEDS: CARAFATE 1 GRAM PO ×2 (08:08→21:09)
[2025-02-02] MEDS: DELTASONE 30 MG PO (08:08)
[2025-02-02] MEDS: NSS (PRESERVATIVE FREE) 10 ML IV (08:09)
[2025-02-02] MEDS: PROTONIX IV 40 MG IV (08:09)
[2025-02-02] MEDS: ROCEPHIN 1000 MG IV (08:09)
[2025-02-02] MEDS: STERILE WATER FOR INJECTION 10 ML IV (08:09)
[2025-02-02] MEDS: OCEAN, SALINE MIST 2 SPRAYS NASAL ×4 (08:15→21:09)
--- NOTE | 2025-02-02 09:53 | W.PN.PUL3 ---
Today's Communication / Plan
-
Doing well, home O2 eval reviewed/set up O2 at home to use with exertion
Continue abx oral course
Repeat imaging as OP
Encouraged ambulation in room, PT/OT
OP Pulm FU recommended, he will find a provider in [place]
Discharge planning per team
Assessment
-
84-year-old male with a history of CAD, chronic renal failure, scoliosis, hiatal hernia presented with 5 days of fevers, chills, weakness and cough noted to have pneumonia-pulmonary consulted for shortness of breath/pneumonia 01/26/2025.
Community-acquired pneumonia involving right upper lobe, posteromedial right lower lobe + lingula
Interstitial fibrosis
Suspected asthma with acute exacerbation
Leukocytosis
Elevated troponin
Mildly elevated ALT
Mild anemia
Conditions present prior to admission:
CAD/stent.
Chronic renal failure stage IIIa.
Scoliosis.
Hiatal hernia.
BPH.
Former [id number]-[id number]-year, quit 46 years ago.
Plan
Respiratory decompensation likely due to xcfuucvbi-szlpqeelv-vcvyspnl in the setting of underlying interstitial fibrosis as well as probable underlying asthma with acute exacerbation
Home O2 eval: 95% on RA-no O2 needed at rest, 2L needed with exertion
Will need home O2 set up per team
Continue with supplemental oxygen - currently on room air from 3L/min on 01/31 - wean down as tolerated while keeping SpO2 >90�94%
No baseline use of O2 at home
Nebulizers-DuoNebs 4 times daily and budesonide nebulizers twice daily
Mucinex 1200 mg twice daily
Mucus clearing devices.
Methylprednisolone changed to prednisone slow taper-currently on 30mg
Aspiration precautions
Diet as per [employer]
Bronchoscopy not indicated at this time.
CXR from 01/30 shows slight improvement in his pneumonia
Pulmonary status will need to be reevaluated once pneumonia clears-suspect a component of chronic interstitial lung disease
Recommend outpatient pulm evaluation including PFTs
Radiographic [id number]-nb-mfz be performed as an outpatient
Cultures reviewed
MRSA screen negative
Urine Legionella and streptococcal antigen negative
Sputum culture 01/24/2025-haemophilus influenza
Repeat sputum culture 01/26/2025-usual respiratory prakash
Empiric antibiotics- s/p doxycycline (01/25 - 01/28/2025), continue with ceftriaxone -finite course
Infectious disease following-correspondence reviewed
Follow leukocytosis
Troponin peaked at 0.055 � no longer need to continue trending at this time
DVT prophylaxis-on subcu heparin every 8 hours
GI prophylaxis-on pantoprazole
Nutrition
Early mobilization/physical therapy
They're usually down in [place]-most recently the [facility], prior to that [place] and before that [place]
Spending 2 months this summer in the [facility]
Dr. Mcghee reviewed with his was at the bedside during interview and exam on 01/27/25, 01/28/25 and 01/30/25
Patient would benefit from being discharged on inhalers such as Symbicort 160/4.5 twice daily in addition to Albuterol as needed with prednisone taper and radiographic follow-up to ensure clearing
Outpatient pulmonary follow-up recommended
He will look for providers in [place]
Discharge planning per team
Diagnostic data:
Chest x-ray 01/24/2025-bilateral patchy opacifications suggesting bilateral pneumonia
CT chest 01/25/2025-CT findings suggest background of interstitial fibrosis, bilateral areas of airspace opacification, minimal bilateral pleural effusions
-----
Total time spent today was 51 minutes for this encounter. Time includes reviewing laboratory test/imaging results, reviewing pertinent medical records, obtaining and reviewing medical history, performing an appropriate exam, ordering medications,
tests and procedures. Time also includes documentation of this encounter, coordinating patient care and communicating with other healthcare professionals. Total time does not include separately billed tests performed on this date of service.
Subjective Data
-
Date of Service:
Date of Service: February 02, 2025
Chief Complaint: Pulmonary Follow Up and Dyspnea Follow Up
Subjective:
Doing well, stable on low O2
No new complaints
Would like to go home
Objective Data
Data Reviewed
Vital Signs / I&O / Oxygen:
Vital Signs
Temp Pulse Resp BP Pulse Ox
98.4 F 88 19 120/66 93
02/02/25 07:00 02/02/25 07:44 02/02/25 07:44 02/02/25 07:00 02/02/25 07:44
Intake and Output
02/01/25 02/02/25 02/03/25
06:59 06:59 06:59
Intake Total 720 / 720 2160 / 2160
Output Total 1925 / 1925 2300 / 2300
Balance -1205 / -1205 -140 / -140
SaO2 93
Nasal Cannula flow liters per 3
minute
Physical Exam
General: Respiratory Distress (n), Comfortable, Chills (n), Sweats (n) and Good Appetite
HEENT: Normocephalic, Anicteric and Moist Mucous Membranes
Cardiovascular: S1-S2, Regular Rhythm, Rub (negative) and Peripheral Edema (negative)
Respiratory: Wheeze ([place] upon expiration R), Crackles (R), Rhonchi (negative), Non-Labored Respirations, Accessory Resp Muscle Use (n) and Stridor (n)
GI: Soft, Non Distended, Non Tender and Normal Bowel Sounds
Neurology: Awake, Alert, Oriented, No Motor Deficits and Tremors (n)
Skin: Warm, Dry, Cyanosis (n) and Jaundice (n)
Labs/Micro/Reports
Lab Data
01/30/25 07:54
01/30/25 07:54
[2025-02-02 11:15] VITALS: O2SAT 87; O2SAT 95
--- NOTE | 2025-02-02 11:22 | CM ---
CM reviewed chart, patient seen bedside with . Patient remains on IV antibiotics. Pulm following. CM will watch for ambulatory O2 needs prior to discharge. Patient will need script for PT/OT upon discharge. CM will continue to follow for all
discharge planning needs.
Plan; home with , will need script for PT/OT, watch for ambulatory O2
[2025-02-02 15:00] VITALS: BP 152/62
--- NOTE | 2025-02-02 15:04 | W.PN.HOSP.TC ---
Today's Communication/Plan
-
Assessment / Plan
Assessment / Plan
PE:
General: No Apparent Distress, deconditioned, Comfortable and Conversant
HEENT: NormoCephalic, Moist mucous membranes, nasal cannula in place
Respiratory: Clear. Non Labored Respirations
Cardiac: S1/S2 and Regular Rhythm; No Rub or Gallop
GI: Soft, Non Tender, Non Distended and Normal Bowel Sounds
Musculoskeletal: No Edema, no deformity
Skin: Warm and dry
: NO [place]
Neuro: Awake, Alert, Nonfocal/grossly intact
Psych: Calm and Intact Judgment/Insight
Sepsis with lactic acidosis / septic shock POA secondary to aspiration pneumonia:
- aspiration is a contributing factor
- s/p IVF . WBC is normal now, afebrile
- no further IVF
- Was on ceftriaxone and doxycycline, now only Rocephin, Repeat CXR no worsening.
- Started on Vest therapy.
- Strep pneumo and Legionella urinary antigens negative, MRSA screen negative
- consulted pulmonary & ID doctors. Upon dc:can transition to oral cefdinir 300 mg p.o. twice daily, to complete a 14-day course.
- Sputum culture is polymicrobial seem respiratory prakash.
- Nebulizers as needed
- Anticipate discharge to home with home health in the next 24 hours
# Suspect underlying ILD
Former dwkwqj-83-dsyn-year, quit 46 years ago.
s/p IV steroid, changed to oral prednisone
c/w nebulizer DuoNeb & Pulmicort
-Outpatient pulmonology follow-up
# Leukocytosis, related to steroid and infection
# Dysphagia
Seen by speech, recommended IDDS-5 with thin liquids
Acute hypoxic respiratory failure:
- Secondary to pneumonia from aspiration
- Continue supplemental oxygen, titrate as able
- Breathing treatments as needed
- Started IV steroids with Solu-Medrol 40 mg every 12 hours
- CT chest showed pneumonia with background pulmonary fibrosis, he does not regularly follow with the associate music professor but should do so going forward
# Mild isuvcl-sgywicgaec-znxajtjnad
chronic
Elevated troponin: non ischemic myocardial injury due to Sepsis
- Mild, peaked at 0.055, now within normal limits
- Do not suspect acute cardiac ischemia, likely due to respiratory distress in the setting of pneumonia
- History of CAD, not on antiplatelets as an outpatient due to anemia, continue carvedilol
Hiatal hernia:
- Possibly contributing to frequent cough/dysphagia
- Continue pantoprazole and sucralfate
CKD stage IIIa:
- Renal function appears close to baseline
- Will monitor and renally dose all medications
Bladder scan no retention
Abnormal LFTs:
-Very mildly elevated ALT, T. bili now within normal limit
- Will monitor
DVT prophylaxis: Subcu heparin
CODE STATUS: Full code, confirmed with patient and family
Total time spent to see the patient, examine the patient, review data and lab result, discuss treatment plan with patient, , nursing staff around 45 minutes
Anticipated Discharge: Within 24 hours
Subjective/Interval History
-
Date of Service: February 02, 2025
Patient was seen and examined this morning. He was ambulating with assistance. Medically has significantly improved. Home oxygen has been set up to use at home as needed with exertion. Planning discharge to home with outpatient PT/OT in the next
24 hours.
Objective Data
-
Vital Signs:
Vital Signs
Temp Pulse Resp BP Pulse Ox
98.4 F 88 19 120/66 96
02/02/25 07:00 02/02/25 07:44 02/02/25 07:44 02/02/25 07:00 02/02/25 08:10
I&O
02/01/25 02/02/25 02/03/25
06:59 06:59 06:59
Intake Total 720 / 720 2160 / 2160
Output Total 1924
Balance -1205 / -1205 -140 / -140
Review of Systems
-
History Source: Patient
All other systems: Reviewed and negative
Constitutional: Reports Weakness
Physical Exam
-
General: No Apparent Distress
[2025-02-02 15:19] VITALS: BP 152/77; PULSE 90; O2SAT 95
--- NOTE | 2025-02-02 15:37 | W.PN.ID1 ---
Date of Service
Date of Service: February 02, 2025
Today's Communication
Continue antibiotics.
Assessment / Plan
CAP secondary to haemophilus influenza
Leukocytosis increased due to steroid
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
CAD
CKD
BPH
Hiatal hernia
Anemia
Recommendations:
Repeat CXR with interval improvement.
Patient clinically slowly improving.
Continue airway clearance
Continue with ceftriaxone while inpatient.
At discharge, can transition to oral cefdinir 300 mg p.o. twice daily, to complete a 14-day course.
Chief Complaint
-: Pneumonia
Subjective / Review of Systems
Review of Systems: No Fever, No Chills, Cough (Occasional), Sputum Production (Scant) and No Chest Pain
Vital Signs / Physical Exam
Vital Signs
Vital Signs
Temp Pulse Resp BP Pulse Ox
98.2 F 87 18 152/62 98
02/02/25 15:00 02/02/25 15:00 02/02/25 15:00 02/02/25 15:00 02/02/25 15:00
Physical Exam
Constitutional: No Acute Distress and Comfortable
Cardiovascular: Regular Rate and S1/S2
Pulmonary: Symmetric and Coarse
Gastrointestinal: Soft, Non Tender, Non Distended and Normal Bowel Sounds
Extremities: Negative Edema
Neurological: AO x 3
Objective Data
Lab Data
Lab Results
01/30/25 07:54
01/30/25 07:54
Estimated Creat Clear 42 ml/min 01/30/25 07:54
Lactic Acid 1.7 mmol/L (0.7-2.0) 01/24/25 11:27
Total Bilirubin 0.8 mg/dl (0.2-1.3) D 01/25/25 06:54
AST 28 U/L (17-59) 01/25/25 06:54
ALT 59 U/L (0-50) H 01/25/25 06:54
Alkaline Phosphatase 95 U/L (38-126) 01/25/25 06:54
Most recent labs reviewed.
Micro Results:
01/24/25 08:13 Blood Culture - Final
Blood/Venous No Growth - Final Report
01/24/25 07:14 Blood Culture - Final
Blood/Venous No Growth - Final Report
01/26/25 15:11 Respiratory Culture - Final
Sputum Usual Respiratory Cecily
Gram Stain - Final
01/24/25 17:07 MRSA Screen - Final
Throat/Pharynx No Methicillin Resistant Staphylococcus aureus isolated.
01/24/25 07:21 Respiratory Culture - Final
Sputum Haemophilus influenzae
Gram Stain - Final
01/24/25 09:19 Streptococcus pneumoniae Antigen (M - Final
Urine Negative for Streptococcus pneumoniae antigen.
A negative result does not exclude infection with
Streptococcus pneumoniae. Clinical correlation is
recommended.
01/24/25 08:13 Legionella Urinary Antigen - Final
Urine Negative for Legionella pneumophila Serogroup 1 antigen.
A negative result does not rule out the possiblity of
Legionella infection due to other serogroups or species of
Legionella. Clinical correlation is recommended.
01/24/25 05:41 Influenza Types A & B (VICKY) - Final
Nasal Swab Negative for Influenza A & B, NAAT
Negative results must be combined with clinical observations
and patient history.
Nucleic Acid Amplification test (NAAT)performed on the
[employer] platform.
01/24/25 05:41 Respiratory Syncytial Virus Ag - Final
Nasal Swab Negative for Respiratory Syncytial Virus.
A false negative result may be obtained with a specimen
collected early in the acute phase. If symptoms persist, a
new specimen should be tested.
Imaging:
01/25/2025 CT chest without contrast: CT findings suggesting a background of interstitial fibrosis. Scattered areas of airspace opacity. Minimal bilateral pleural effusions noted. Please see full dictation for additional detail. Film personally
viewed.
01/30/25 CXR: Slight interval improvement in bilateral parenchymal opacities, suggesting improving pneumonia. There is likely a background of interstitial fibrosis.
[2025-02-02] MEDS: XALATAN OPHTHALMIC SOLUTION 1 DROP OPHTH (17:54)
[2025-02-02] MEDS: MUCINEX PO ×2 (21:08→21:10)
[2025-02-02] MEDS: SEROQUEL 50 MG PO (21:09)
[2025-02-02] MEDS: FLOMAX 0.4 MG PO (21:09)
[2025-02-02 23:38] VITALS: BP 118/73
[2025-02-03] MEDS: HEPARIN 5000 UNITS SC ×2 (00:03→08:45)
[2025-02-03] MEDS: ULTRAM 50 MG PO (03:05)
[2025-02-03 06:00] VITALS: BMI 24.0
[2025-02-03 07:00] VITALS: BP 137/71
[2025-02-03] MEDS: PULMICORT 0.5 MG INH (07:37)
[2025-02-03] MEDS: DUONEB 3 ML INH ×2 (07:37→11:12)
[2025-02-03] MEDS: MUCINEX 1200 MG PO (08:45)
[2025-02-03] MEDS: CARAFATE 1 GRAM PO (08:45)
[2025-02-03] MEDS: DELTASONE 30 MG PO (08:45)
[2025-02-03] MEDS: ROCEPHIN 1000 MG IV (08:46)
[2025-02-03] MEDS: OCEAN, SALINE MIST 2 SPRAYS NASAL (08:47)
[2025-02-03] MEDS: PROTONIX IV 40 MG IV (08:47)
[2025-02-03] MEDS: STERILE WATER FOR INJECTION 10 ML IV (08:47)
[2025-02-03] MEDS: NSS (PRESERVATIVE FREE) 10 ML IV (08:47)
--- NOTE | 2025-02-03 09:39 | W.PN.PUL3 ---
Today's Communication / Plan
-
Doing well, stable on RA
Home O2 set up per team
Resume inhalers at d/c
Discharge planning per team
FU Pulmonary OP, he will find a provider in [place]
We will sign off at this time, pls call with questions
Assessment
-
84-year-old male with a history of CAD, chronic renal failure, scoliosis, hiatal hernia presented with 5 days of fevers, chills, weakness and cough noted to have pneumonia-pulmonary consulted for shortness of breath/pneumonia 01/26/2025.
Community-acquired pneumonia involving right upper lobe, posteromedial right lower lobe + lingula
Interstitial fibrosis
Suspected asthma with acute exacerbation
Leukocytosis
Elevated troponin
Mildly elevated ALT
Mild anemia
Conditions present prior to admission:
CAD/stent.
Chronic renal failure stage IIIa.
Scoliosis.
Hiatal hernia.
BPH.
Former [id number]-62-xztc-year, quit 46 years ago.
Plan
Respiratory decompensation likely due to smmguykxj-zeltnnvus-mkceoukn in the setting of underlying interstitial fibrosis as well as probable underlying asthma with acute exacerbation
Home O2 eval: 95% on RA-no O2 needed at rest, 2L needed with exertion
Will need home O2 set up per team
Continue with supplemental oxygen - currently on room air from 3L/min on 01/31 - wean down as tolerated while keeping SpO2 >90�94%
No baseline use of O2 at home
Nebulizers-DuoNebs 4 times daily and budesonide nebulizers twice daily
Mucinex 1200 mg twice daily
Mucus clearing devices.
Methylprednisolone changed to prednisone slow taper-currently on 30mg
Aspiration precautions
Diet as per DIRECT MARKETING SPECIALIST
Bronchoscopy not indicated at this time.
CXR from 01/30 shows slight improvement in his pneumonia
Pulmonary status will need to be reevaluated once pneumonia clears-suspect a component of chronic interstitial lung disease
Recommend outpatient pulm evaluation including PFTs
Radiographic mglnfg-hy-iqe be performed as an outpatient
Cultures reviewed
MRSA screen negative
Urine Legionella and streptococcal antigen negative
Sputum culture 01/24/2025-haemophilus influenza
Repeat sputum culture 01/26/2025-usual respiratory prakash
Empiric antibiotics- s/p doxycycline (01/25 - 01/28/2025), continue with ceftriaxone -finite course
Infectious disease following-correspondence reviewed
Follow leukocytosis
Troponin peaked at 0.055 � no longer need to continue trending at this time
DVT prophylaxis-on subcu heparin every 8 hours
GI prophylaxis-on pantoprazole
Nutrition
Early mobilization/physical therapy
They're usually down in [place]-most recently the [facility], prior to that [place] and before that [place]
Spending 2 months this summer in the [facility]
Dr. Mcghee reviewed with his was at the bedside during interview and exam on 01/27/25, 01/28/25 and 01/30/25
Patient would benefit from being discharged on inhalers such as Symbicort 160/4.5 twice daily in addition to Albuterol as needed with prednisone taper and radiographic follow-up to ensure clearing
Outpatient pulmonary follow-up recommended
He will look for providers in [place]
Discharge planning per team
Diagnostic data:
Chest x-ray 01/24/2025-bilateral patchy opacifications suggesting bilateral pneumonia
CT chest 01/25/2025-CT findings suggest background of interstitial fibrosis, bilateral areas of airspace opacification, minimal bilateral pleural effusions
-----
Total time spent today was 45 minutes for this encounter. Time includes reviewing laboratory test/imaging results, reviewing pertinent medical records, obtaining and reviewing medical history, performing an appropriate exam, ordering medications,
tests and procedures. Time also includes documentation of this encounter, coordinating patient care and communicating with other healthcare professionals. Total time does not include separately billed tests performed on this date of service.
Subjective Data
-
Date of Service:
Date of Service: February 03, 2025
Chief Complaint: Pulmonary Follow Up and Dyspnea Follow Up
Subjective:
No new complaints, stable on RA
Some wheezing noted, mild overall
He is still ready to go home
Objective Data
Data Reviewed
Vital Signs / I&O / Oxygen:
Vital Signs
Temp Pulse Resp BP Pulse Ox
98.5 F 82 18 137/71 94
02/03/25 07:00 02/03/25 07:41 02/03/25 07:41 02/03/25 07:00 02/03/25 07:41
Intake and Output
02/02/25 02/03/25 02/04/25
06:59 06:59 06:59
Intake Total 2160 / 2160 1020 / 1020
Output Total 2300 / 2300 1300 / 1300
Balance -140 / -140 -280 / -280
SaO2 94
Nasal Cannula flow liters per 3
minute
Physical Exam
General: Respiratory Distress (n), Comfortable, Chills (n), Sweats (n) and Good Appetite
HEENT: Normocephalic, Anicteric and Moist Mucous Membranes
Cardiovascular: S1-S2, Regular Rhythm, Rub (negative) and Peripheral Edema (negative)
Respiratory: Wheeze ([place] upon expiration R), Crackles (R), Rhonchi (negative), Non-Labored Respirations, Accessory Resp Muscle Use (n) and Stridor (n)
GI: Soft, Non Distended, Non Tender and Normal Bowel Sounds
Neurology: Awake, Alert, Oriented, No Motor Deficits and Tremors (n)
Skin: Warm, Dry, Cyanosis (n) and Jaundice (n)
Labs/Micro/Reports
Lab Data
01/30/25 07:54
01/30/25 07:54
[2025-02-03 09:56] VITALS: O2SAT 90
--- NOTE | 2025-02-03 10:59 | CM ---
Addendum entered by Lesley eVla 02/03/25 16:17:
Confirmed with Robert from [facility], will deliver O2 to hospital between 4-7 p.m. Update to patient and bedside. Patient discharging to 's family in [facility], then returning to [place] on Sunday- update to [facility] that patient
will not be in OR until Sunday, confirmed they will still service patient.
Original Note:
CM reviewed chart, patient seen bedside with . Patient requires oxygen with ambulation upon discharge. Patient confirmed discharging to home to [place]- [address] [place] [address]. Call to Robert with [facility] to discuss oxygen
delivery to hospital, confirm ability to service patient in OR. Script for outpatient therapy on chart. IMM reviewed, signed, placed on chart. CM will continue to follow for all discharge planning needs.
Plan; return to [place], awaiting oxygen confirmation through [employer]
[2025-02-03] MEDS: OCEAN, SALINE MIST NASAL (13:43)
[2025-02-03 15:00] VITALS: BP 126/68
--- NOTE | 2025-02-03 15:52 | W.PN.ID1 ---
Date of Service
Date of Service: February 03, 2025
Today's Communication
Continue abx.
Assessment / Plan
CAP secondary to haemophilus influenza
Leukocytosis increased due to steroid
ILD (on CT)
CAD
CKD
BPH
Hiatal hernia
Anemia
Recommendations:
Repeat CXR with interval improvement.
Patient clinically slowly improving.
Continue airway clearance measures
Continue with ceftriaxone while inpatient.
At discharge, can transition to oral cefdinir 300 mg p.o. twice daily, to complete a 14-day course.
F/U CXR in 4-6 weeks.
Chief Complaint
-: Pneumonia
Subjective / Review of Systems
Review of Systems: No Fever, No Chills and No Chest Pain
Vital Signs / Physical Exam
Vital Signs
Vital Signs
Temp Pulse Resp BP Pulse Ox
98.5 F 92 20 126/68 96
02/03/25 15:00 02/03/25 15:00 02/03/25 15:00 02/03/25 15:00 02/03/25 15:00
Physical Exam
Constitutional: No Acute Distress and Comfortable
Cardiovascular: Regular Rate and S1/S2
Pulmonary: Symmetric, Wheezes and Coarse
Gastrointestinal: Soft, Non Tender, Non Distended and Normal Bowel Sounds
Extremities: Negative Edema
Neurological: AO x 3
Objective Data
Lab Data
Lab Results
01/30/25 07:54
01/30/25 07:54
Estimated Creat Clear 42 ml/min 01/30/25 07:54
Lactic Acid 1.7 mmol/L (0.7-2.0) 01/24/25 11:27
Total Bilirubin 0.8 mg/dl (0.2-1.3) D 01/25/25 06:54
AST 28 U/L (17-59) 01/25/25 06:54
ALT 59 U/L (0-50) H 01/25/25 06:54
Alkaline Phosphatase 95 U/L (38-126) 01/25/25 06:54
Most recent labs reviewed.
Micro Results:
01/24/25 08:13 Blood Culture - Final
Blood/Venous No Growth - Final Report
01/24/25 07:14 Blood Culture - Final
Blood/Venous No Growth - Final Report
01/26/25 15:11 Respiratory Culture - Final
Sputum Usual Respiratory Cecily
Gram Stain - Final
01/24/25 17:07 MRSA Screen - Final
Throat/Pharynx No Methicillin Resistant Staphylococcus aureus isolated.
01/24/25 07:21 Respiratory Culture - Final
Sputum Haemophilus influenzae
Gram Stain - Final
01/24/25 09:19 Streptococcus pneumoniae Antigen (M - Final
Urine Negative for Streptococcus pneumoniae antigen.
A negative result does not exclude infection with
Streptococcus pneumoniae. Clinical correlation is
recommended.
01/24/25 08:13 Legionella Urinary Antigen - Final
Urine Negative for Legionella pneumophila Serogroup 1 antigen.
A negative result does not rule out the possiblity of
Legionella infection due to other serogroups or species of
Legionella. Clinical correlation is recommended.
01/24/25 05:41 Influenza Types A & B (VICKY) - Final
Nasal Swab Negative for Influenza A & B, NAAT
Negative results must be combined with clinical observations
and patient history.
Nucleic Acid Amplification test (NAAT)performed on the
[employer] platform.
01/24/25 05:41 Respiratory Syncytial Virus Ag - Final
Nasal Swab Negative for Respiratory Syncytial Virus.
A false negative result may be obtained with a specimen
collected early in the acute phase. If symptoms persist, a
new specimen should be tested.
Imaging:
01/25/2025 CT chest without contrast: CT findings suggesting a background of interstitial fibrosis. Scattered areas of airspace opacity. Minimal bilateral pleural effusions noted. Please see full dictation for additional detail. Film personally
viewed.
01/30/25 CXR: Slight interval improvement in bilateral parenchymal opacities, suggesting improving pneumonia. There is likely a background of interstitial fibrosis.
[2025-02-03] MEDS: HEPARIN SC (17:25)
--- NOTE | 2025-02-03 17:25 | W.DCSUMMARY ---
Discharge Summary
Discharge Data
Date of Admission: 01/24/25
Date of Discharge: 02/03/25
Total time spent discharging patient (in min): 55
-
Pending Results: No
Hospital Course
Mr. Shell is an 84-year-old male with a medical history of CAD (status post stent, reportedly not on antiplatelets due to anemia), CKD stage IIIa, scoliosis (status post multiple lumbar surgeries), hiatal hernia, and enlarged prostate who presented
with fever, chills, weakness, and cough. His symptoms had been ongoing for approximately 5 days prior to arrival. He had been treated this previous winter for pneumonia due to RSV and influenza. He does report occasional cough with food and
drink. He lives in [place] with his where all of his previous care has been managed. He has been evaluated by GI and underwent upper and lower endoscopy which were reportedly remarkable only for a hiatal hernia. He denied any significant
smoking or drinking history.
In the ED, he was borderline hypotensive with an SBP around 100. He was afebrile but tachypneic and hypoxic to the low 80s on room air. His pulse ox improved to the mid 90s on 3 L via nasal cannula. Labs were remarkable for a significant
leukocytosis of 22,000, hemoglobin of 11.8/MCV 87, creatinine 1.6, lactic acid 2.3, T. bili 1.9 with an ALT of 88, and a troponin of 0.046. Respiratory panel negative for RSV, influenza, or COVID. Chest x-ray shows large left lower lobe and right
middle lobe infiltrate. He was bolused a liter of resuscitative fluids, cultures were obtained, and he was started on antibiotics for community-acquired pneumonia. Sputum culture was also obtained. He was admitted for further evaluation and
management of sepsis secondary to community-acquired pneumonia.
Sputum cultures were positive for haemophilus influenza which is likely the major contributing factor to his pneumonia with hypoxic respiratory failure. Secondarily, he was also found to have signs and symptoms of aspiration which is likely
contributing to his presentation. He was evaluated by speech and language pathology who recommended a modified diet of minced and moist solids with chin tuck to avoid aspiration. His antibiotic regimen was able to be narrowed to ceftriaxone alone.
His respiratory status improved with supplemental oxygen which he will continue after discharge as needed with exertion. Chest imaging showed background low-level pulmonary fibrosis. He was evaluated by pulmonology while inpatient who found no
specific intervention was warranted other than steroids. He will be discharged with a slow taper of oral steroids and will need to follow-up with a digital product specialist in the outpatient setting. His antibiotics will be changed to oral cefdinir 300 mg
twice daily at discharge to complete a total 14-day course (through 02/07/2025).
At the time of hospital discharge he was medically stable. He will need follow-up with his PCP and with a digital product specialist. He should also follow-up with a speech and language pathologist. He will be discharged home with home oxygen.
PE:
General: No Apparent Distress, deconditioned, Comfortable and Conversant
HEENT: NormoCephalic, Moist mucous membranes, nasal cannula in place
Respiratory: Mild rhonchi. Non Labored Respirations
Cardiac: S1/S2 and Regular Rhythm; No Rub or Gallop
GI: Soft, Non Tender, Non Distended and Normal Bowel Sounds
Musculoskeletal: No Edema, no deformity
Skin: Warm and dry
: NO Oliver
Neuro: Awake, Alert, Nonfocal/grossly intact
Psych: Calm and Intact Judgment/Insight
Discharge Plan
-
Patient Disposition: Home (Routine Discharge)
Discharge Diagnosis/Procedures: Sepsis secondary to pneumonia due to haemophilus influenza, aspiration pneumonia
Diet: Other diet
Additional Diets: Minced and moist, chin tuck
Activity: As tolerated
Activity Restrictions/Additional Instructions:
Mr. Shell is an 84-year-old male with a medical history of CAD (status post stent, reportedly not on antiplatelets due to anemia), CKD stage IIIa, scoliosis (status post multiple lumbar surgeries), hiatal hernia, and enlarged prostate who presented
with fever, chills, weakness, and cough. His symptoms had been ongoing for approximately 5 days prior to arrival. He had been treated this previous winter for pneumonia due to RSV and influenza. He does report occasional cough with food and
drink. He lives in [place] with his where all of his previous care has been managed. He has been evaluated by GI and underwent upper and lower endoscopy which were reportedly remarkable only for a hiatal hernia. He denied any significant
smoking or drinking history.
In the ED, he was borderline hypotensive with an SBP around 100. He was afebrile but tachypneic and hypoxic to the low 80s on room air. His pulse ox improved to the mid 90s on 3 L via nasal cannula. Labs were remarkable for a significant
leukocytosis of 22,000, hemoglobin of 11.8/MCV 87, creatinine 1.6, lactic acid 2.3, T. bili 1.9 with an ALT of 88, and a troponin of 0.046. Respiratory panel negative for RSV, influenza, or COVID. Chest x-ray shows large left lower lobe and right
middle lobe infiltrate. He was bolused a liter of resuscitative fluids, cultures were obtained, and he was started on antibiotics for community-acquired pneumonia. Sputum culture was also obtained. He was admitted for further evaluation and
management of sepsis secondary to community-acquired pneumonia.
Sputum cultures were positive for haemophilus influenza which is likely the major contributing factor to his pneumonia with hypoxic respiratory failure. Secondarily, he was also found to have signs and symptoms of aspiration which is likely
contributing to his presentation. He was evaluated by speech and language pathology who recommended a modified diet of minced and moist solids with chin tuck to avoid aspiration. His antibiotic regimen was able to be narrowed to ceftriaxone alone.
His respiratory status improved with supplemental oxygen which he will continue after discharge as needed with exertion. Chest imaging showed background low-level pulmonary fibrosis. He was evaluated by pulmonology while inpatient who found no
specific intervention was warranted other than steroids. He will be discharged with a slow taper of oral steroids and will need to follow-up with a digital product specialist in the outpatient setting. His antibiotics will be changed to oral cefdinir 300 mg
twice daily at discharge to complete a total 14-day course (through 02/07/2025).
At the time of hospital discharge he was medically stable. He will need follow-up with his PCP and with a digital product specialist. He should also follow-up with a speech and language pathologist. He will be discharged home with home oxygen.
Referrals:
Sagar Mcghee MD [Active] - in one to two weeks
( Dr. Mcghee, or [facility]
PFTs)
UNKNOWN - PT DOES,NOT KNOW [Family Provider] -
Prescriptions:
New
fluticasone propion-salmeterol [Advair HFA] 230-21 mcg/actuation HFA aerosol inhaler
2 puff inhalation BID 30 Days Qty: 12 0RF
prednisone 10 mg Tablet
See Taper PO DAILY Qty: 90 0RF
Taper: Prednisone DC Starting at 40 mg daily
40 mg Daily for 3 Days and 0 Hour
30 mg Daily for 3 Days and 0 Hour
20 mg Daily for 3 Days and 0 Hour
10 mg Daily for 3 Days and 0 Hour
guaifenesin 600 mg Tablet Extended Release 12hr
1,200 mg PO Q12 5 Days Qty: 20 0RF
cefdinir 300 mg capsule
300 mg PO BID 4 Days Qty: 8 0RF
Continued
latanoprost 0.005 % Drops
1 drp BOTH EYES HS
Rx Instructions:
each eye
atorvastatin 80 mg Tablet
80 mg PO HS
acetaminophen [Tylenol] 325 mg Tablet
325 mg PO TIDPRN PRN (Reason: mild pain, with tramadol)
sucralfate 1 gram Tablet
1 g PO BID@1400,2000
torsemide 10 mg Tablet
10 mg PO DAILY
tramadol 50 mg Tablet
50 mg PO TIDPRN PRN (Reason: back pain)
carvedilol 3.125 mg Tablet
3.125 mg PO BID@0800,2000
meclizine 25 mg Tablet
25 mg PO TID PRN (Reason: vertigo)
pantoprazole 40 mg Tablet,Delayed Release (Dr/Ec)
40 mg PO DAILY
ferrous sulfate 325 mg (65 mg iron) Tablet
325 mg PO MOWEFR
alfuzosin 10 mg Tablet Extended Release 24 Hr
10 mg PO DAILY
albuterol sulfate 90 mcg/actuation HFA aerosol inhaler
1 puff INHALATION R DAILYPRN PRN (Reason: sob)
fluticasone propionate 50 mcg/actuation [place],Suspension
1 spray INTRANASAL DAILYPRN PRN (Reason: allergies)
quetiapine 50 mg tablet
50 mg PO HS
Discharge Orders:
Discharge Patient (As Directed); Ordered 02/03/25
Ordered By: Allen Salgado
Discharge Date and Time
Print Language: PORTUGUESE
== END 2025-02-03 18:25 | disposition home or self-care (01) | DRG 871 ==
LOC: 4 WEST ACU 08:27
PROVIDERS: Emergency Medicine; Internal Medicine; ADMITTING PHYSICIAN Internal Medicine; EMERGENCY PHYSICIAN Emergency Medicine; OTHER PHYSICIAN Internal Medicine Critical Care Medicine; OTHER PHYSICIAN Internal Medicine Infectious Disease
DX: A41.3 Sepsis due to Hemophilus influenzae (principal); J14 Pneumonia due to Hemophilus influenzae; J18.9 Pneumonia, unspecified organism; J96.01 Acute respiratory failure with hypoxia; R65.21 Severe sepsis with septic shock; J69.0 Pneumonitis due to inhalation of food and vomit; E87.20 Acidosis, unspecified; I5A Non-ischemic myocardial injury (non-traumatic); J90 Pleural effusion, not elsewhere classified; J45.901 Unspecified asthma with (acute) exacerbation; N17.9 Acute kidney failure, unspecified; R13.10 Dysphagia, unspecified; J84.10 Pulmonary fibrosis, unspecified; D64.9 Anemia, unspecified; K44.9 Diaphragmatic hernia without obstruction or gangrene; I25.10 Atherosclerotic heart disease of native coronary artery without angina pectoris; N18.31 Chronic kidney disease, stage 3a; M41.84 Other forms of scoliosis, thoracic region; N40.0 Benign prostatic hyperplasia without lower urinary tract symptoms; D72.829 Elevated white blood cell count, unspecified; Z87.01 Personal history of pneumonia (recurrent); Z87.891 Personal history of nicotine dependence; Z95.5 Presence of coronary angioplasty implant and graft; Z11.52 Encounter for screening for COVID-19
CPT/HCPCS: 71046; 71250; 74230; 80048; 80053; 82248; 83605; 83735; 84100; 84484; 85025; 85027; 87040; 87070; 87077; 87185; 87205; 87449; 87502; 87807; 87811; 87899; 92526; 92610; 92611; 93005; 94640; 94669; 96365; 96375; 97116; 97162; 97167; 97530; 97535; 99285